=== PATIENT | female | born 2000 | race Caucasian/White ===

== ENCOUNTER → 2023-03-28 | Outpatient (CLI) | payer BC, SELFPAY ==
[2023-03-30 22:07] LABS: Chlamydia By Nucleic Acid AMP Negative (Negative); Gonococcus By Nucleic Acid AMP Negative (Negative)
[2023-04-01 16:09] LABS: HPV APTIMA, High Risk Negative (Negative)
== END | disposition home or self-care (01) ==
LOC: LABSPEC 13:53
PROVIDERS: Visit Provider Obstetrics & Gynecology
DX: Z34.90 Encounter for supervision of normal pregnancy, unspecified, unspecified trimester (principal)
CPT/HCPCS: 87086; 87491; 87591; 87624; 88175; G0145

== ENCOUNTER → 2023-05-19 | Outpatient (CLI) | payer BC, SELFPAY ==
--- OUTSIDE RECORDS SUMMARY | 2023-05-19 14:00 | XMS RPT_ITS | CCD ---
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 Name Role Phone Campos Marlene Deborah Unavailable Unavailable Unavailable Unavailable CECY TIRADO Unavailable Unavailable CECY TIRADO H Unavailable Unavailable CECY PEREZ Unavailable Unavailable CECY PEREZ Unavailable Unavailable Baltazar Lam Unavailable Unavailable Baltazar Lam Unavailable Unavailable No Doctor Assigned, Nodr Unavailable Unavail able Gasca, Marlene Deborah Primary Care Provider [phone] Ana Lilia Ambrose Admitting Unavailable Ana Lilia Ambrose Attending Unavailable Harriet Sears Admitting Unavailable Harriet Sears Attending Unavailable Gasca, Marlene Admitting Unavailable Gasca, Marlene Attending Unavailable Gasca, Marlene Admitting Unavailable Gasca, Marlene Attending Unavailable Gasca, Marlene Admitting Unavailable Gasca, Marlene Attending Unavailable Gasca, Marlene Deborah Primary Care Provider Cecy Tirado Primary Care Provider Unavailable Primary Care Provider Unavailabl e Gasca, Marlene Deborah Primary Care Provider RICKEY PARSON Admitting Unavail able GASCA, MARLENE DEBORAH Primary Care Unavailable KASIA GOMEZ Referring Unavailable KASIA GOMEZ Admitting Unavailable GASCA, MARLENE DEBORAH Primary Care Unavailable GASCA, MARLENE DEBORAH Primary Care Unavailable ROGELIO BAKER Attending Unavailable Gasca, Marlene Primary Care Provider [phone] GERTRUDE BURNETTE II Referring Unavailabl e GASCA, MARLENE Primary Care Unavailable ROSALINA BURNETTE Attending Unavailabl e GASCA, MARLENE BLACKWELLA Attending Unavailable GASCA, MARLENE DEBORAH Primary Care Unavailable GASCA, MARLENE DEBORAH Primary Care Unavailable GASCA, MARLENE DEBORAH Attending Unavailable GASCA, MARLENE DEBORAH Attending Unavailable GASCA, MARLENE DEBORAH Primary Care Unavailable MARY RICHARDSON Attending Unavailabl e GASCA, MARLENE DEBORAH Primary Care Unavailable GASCA, MARLENE DEBORAH Primary Care Unavailable GASCA, MARLENE DEBORAH Primary Care Unavailable GASCA, MARLENE DEBORAH Primary Care Unavailable Allergies Allergy Classification Reported Allergen(s) Allergy Type Date of Onset Reaction(s) Facility (20 sources) amoxicillin / clavulanate; Translations: [AMOXICILLIN-POT CLAVULANATE] Drug Allergy 4 GI Intolerance, Nausea and Vomiting, Vomiting [facility] (1 source) Amoxicillin / Clavulanate; Translations: [Augmentin] Drug Allergy [facility] Repository (20 sources) Codeine; Translations: [CODEINE] Drug Allergy 5 GI Intolerance, Nausea and Vomiting, Vomiting [facility] (15 sources) Sulfonamides (Antibiotic); Translations: [SULFA (SULFONAMIDE ANTIBIOTICS)] Propensity to adverse reactions to drug 6 GI Intolerance, Other (See Comments) [facility] (4 sources) casein (cow milk) allergenic extract Drug Allergy Abdominal Discomfort [facility] (6 sources) chocolate allergenic extract; Translations: [CHOCOLATE] Drug Allergy 4 Abdominal Discomfort, [facility] (4 sources) Sulfonamides (Antibiotic) Propensity to adverse reactions to drug Headache [facility] (2 sources) cow milk allergenic extract; Translations: [MILK] Drug Allergy 4 GI Upset [facility] Medications Current Medications Medication Drug Class(es) Dates Sig (Normalized) Sig (Original) acetaminophen 325 mg oral tablet (2 sources) Start: 10-10-2019 take 650 mg by mouth every six hours as needed for pain, then take 4000 mg by mouth every twenty-four hours as needed for pain 650 mg, Oral, EVERY 6 HOURS PRN, Pain Mild (1-3), Starting [facility] 10/10/19 at 1724 Maximum dose of acetaminophen is 4000 mg from all sources in 24 hours. Completed/Discontinued Medications Medication Drug Class(es) Dates Sig (Normalized) Sig (Original) amoxicillin 875 mg / clavulanate 125 mg oral tablet (1 source) Penicillin-class Antibacterial Start: 09-07-2017 End: 09-07-2017 take 1 tablet by mouth twice daily amoxicillin-clavul anate (AUGMENTIN) 875-125 mg per tablet Indications: Acute non-recurrent frontal sinusitis Take 1 (one) tablet by mouth 2 (two) times a day. 20 tablet 0 09/07/2017 09/07/2017 Discontinued Calcium Carbonate / vitamin D3 (1 source) CALCIUM CARBONATE/VITAMIN D3 (VITAMIN D-3 ORAL) Take by mouth. 0 Active Problems Active Problems Problem Classification Problem Date Documented Date Episodic/Chronic Blindness and vision defects (2 sources) Bilateral myopia of eyes; Translations: [Myopia, bilateral] Onset: 5 Episodic Coagulation and hemorrhagic disorders (10 sources) Thrombocytopenia, unspecified; Translations: [Idiopathic thrombocytopenic purpura] Onset: 7 10-25-2016 Chronic Deficiency and other anemia (4 sources) Anemia; Translations: [Anemia, unspecified] 10-25-2016 Episodic E Codes: Adverse effects of medical drugs (2 sources) Adverse effect of unspecified drugs, medicaments and biological substances, initial encounter; Translations: [Adverse effect of unspecified drugs, medicaments and biological substances, initial encounter] Onset: 3 Episodic External cause codes: Natural/environment (1 source) Exposure to other specified factors, initial encounter; Translations: [Exposure to needle, initial encounter] Genitourinary symptoms and ill-defined conditions (1 source) Foul smelling urine; Translations: [Bad odor of urine] Intestinal infection (1 source) Diarrhea of presumed infectious origin Episodic Menstrual disorders (2 sources) Irregular menstruation, unspecified; Translations: [Irregular menstruation, unspecified] Onset: 3 Chronic Nausea and vomiting (1 source) Nausea and vomiting Episodic Noninfectious gastroenteritis (1 source) Gastroenteritis; Translations: [Gastroenteritis] Episodic Other complications of ; puerperium affecting management of mother (1 source) delivery - delivered; Translations: [ delivery delivered] Episodic Other complications of ; puerperium affecting management of mother (2 sources) Indication for care AND/OR intervention in labor AND/OR delivery; Translations: [Labor and delivery indication for care or intervention] Onset: 0 10-10-2019 Episodic Other complications of ; puerperium affecting management of mother (5 sources) Suspected abnormality affecting management of mother; Translations: [Suspected abnormality of fetus affecting management of mother in delgado ] 09-11-2019 Other complications of (2 sources) condition affecting obstetrical care of mother; Translations: [ abnormality affecting management of mother] 09-23-2019 Episodic Other eye disorders (1 source) Bilateral neovascularization of corneas; 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, 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 Other eye disorders (1 source) Vascularization of cornea; 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, unspecified eye] Onset: 6 12-04-2015 Chronic Other hematologic conditions (4 sources) Personal history of diseases of the blood and blood-forming organs and certain disorders involving the immune mechanism; Translations: [Personal history of diseases of the blood and blood-forming organs and certain disorders involving the immune mechanism] Onset: 2 Episodic Other injuries and conditions due to external causes (1 source) Needle stick injury with contaminated needle; Translations: [Accidental needlestick injury with exposure to body fluid] Episodic Other upper respiratory disease (1 source) Seasonal allergic rhinitis Chronic Other upper respiratory infections (1 source) Sore throat symptom; Translations: [Sore throat] Episodic Otitis media and related conditions (1 source) Otitis media; Translations: [Otitis media, unspecified laterality, unspecified otitis media type] Episodic Polyhydramnios and other problems of amniotic cavity (3 sources) Oligohydramnios; Translations: [Oligohydramnios antepartum, third trimester, fetus 1] Onset: 0 10-07-2019 Episodic Spondylosis; intervertebral disc disorders; other back problems (4 sources) Low back pain; Translations: [Low back pain] 10-25-2016 Episodic Unclassified (1 source) Patient encounter status; Translations: [Well adult exam] Urinary tract infections (2 sources) Urinary tract infectious disease; Translations: [Urinary tract infection with hematuria, site unspecified] Episodic Past or Other Problems Problem Classification Problem Date Documented Date Episodic/Chronic Genitourinary symptoms and ill-defined conditions (8 sources) Abnormal urine odor; Translations: [Dysuria] Onset: 02-28-2020 02-28-2020 Episodic Medical examination/evaluatio n (2 sources) Encounter for general adult medical examination without abnormal findings; Translations: [Encounter for general adult medical examination without abnormal findings] Onset: 11-02-2016 Episodic Other eye disorders (1 source) Disorder of cornea associated with contact lens; Translations: [Corneal disorder due to contact lens, unspecified eye] Onset: 04-15-2015 04-15-2015 Episodic Other screening for suspected conditions (not mental disorders or infectious disease) (12 sources) Encounter for screening for lipoid disorders; Translations: [Encounter for screening for cardiovascular disorders] Onset: 10-19-2022 Episodic NEGATED: Highlighted row has been ruled out!Unclassified (3 sources) No known active problems Results Test Name Value Interpretation Reference Range Facil ity Vital Signs Date Time Vital Sign Value Performing Clinician Facility 02-27-2020 15:46-0400 Body Temperature 97.7 [degF] [facility] 02-27-2020 15:46-0400 BP Diastolic 64 mm[Hg] [facility] 02-27-2020 15:46-0400 BP Systolic 105 mm[Hg] [facility] 02-27-2020 15:46-0400 Pulse (Heart Rate) 58 /min [facility] 02-27-2020 15:46-0400 Pulse Oximetry 98 % [facility] 02-27-2020 15:46-0400 Respiratory Rate 18 /min [facility] 10-12-2019 08:59-0400 Body Temperature 97 [degF] [facility] [place] [place] 10-12-2019 08:59-0400 BP Diastolic 77 mm[Hg] [place], [place] 10-12-2019 08:59-0400 BP Systolic 106 mm[Hg] [facility] [place] [place] 10-12-2019 08:59-0400 Pulse (Heart Rate) 78 /min [facility] [place] 10-12-2019 08:59-0400 Pulse Oximetry 97 % [place], [place] 10-12-2019 08:59-0400 Respiratory Rate 18 /min [facility] [place] 10-10-2019 10:03-0400 BMI (Body Mass Index) 27.78 kg/m2 [facility] [place] 10-10-2019 10:03-0400 Body weight 66.[address] [facility] , [place] 10-10-2019 10:03-0400 Height [facility].9 [facility] Mag[facility] , [place] 10-08-2019 07:47-0400 Body Temperature 98.01 [degF] Leonila Magallanes [facility] [place] 10-08-2019 07:47-0400 BP Diastolic 62 mm[Hg] Leon[facility] [place] , [place] 10-08-2019 07:47-0400 BP Systolic 102 mm[Hg] Leonila [facility] [place] 10-08-2019 07:47-0400 Pulse (Heart Rate) 80 /min Leonila Ferguson [facility] 10-08-2019 07:47-0400 Pulse Oximetry 96 % Leonila Ferguson [facility] [place] 10-08-2019 07:47-0400 Respiratory Rate 18 /min Leonila Magallanes [facility], [place] 10-07-2019 17:59-0400 BMI (Body Mass Index) 27.78 kg/m2 Leonila Magallanes [facility], [place] 10-07-2019 17:59-0400 Body weight 66.68 kg Leonila aMgallanes [facility] , [place] 10-07-2019 17:59-0400 Height 154.9 cm Leonila Magallanes [facility] [place] 09-23-2019 10:27-0400 BMI (Body Mass Index) 26.45 kg/m2 Leonila Magallanes [facility], [place] 09-23-2019 10:27-0400 Body Temperature 97.9 [degF] Leonila Magallanes [facility], [place] 09-23-2019 10:27-0400 Body weight 63.5 kg Leonila Magallanes [facility] , [place] 09-23-2019 10:27-0400 BP Diastolic 88 mm[Hg] Leonila Ferguson [facility] [place] 09-23-2019 10:27-0400 BP Systolic 129 mm[Hg] Leonila Magallanes [facility] , [place] 09-23-2019 10:27-0400 Height 154.9 cm Leonila Magallanes [facility] , [place] 09-23-2019 10:27-0400 Pulse (Heart Rate) 92 /min Leonila Magallanes [facility] 09-23-2019 10:27-0400 Respiratory Rate 20 /min Leonila Magallanes [facility], [place] 09-11-2019 14:19-0400 BMI (Body Mass Index) 26.45 kg/m2 Leonila Magallanes [facility], [place] 09-11-2019 14:19-0400 Body weight 63.5 kg Leonila Magallanes [facility] [place] 09-11-2019 14:19-0400 Height 154.9 cm Leonila Magallanes [facility] [place] 12-07-2018 11:08-0400 BMI (Body Mass Index) 22.48 kg/m2 [facility] 12-07-2018 11:08-0400 Body Temperature 98.1 [degF] [facility] 12-07-2018 11:08-0400 Body weight 53.98 kg [facility] 12-07-2018 11:08-0400 BP Diastolic 58 mm[Hg] [facility] 12-07-2018 11:08-0400 BP Systolic 102 mm[Hg] [facility] 12-07-2018 11:08-0400 Height 154.9 cm [facility] 12-07-2018 11:08-0400 Pulse (Heart Rate) 77 /min [facility] 12-07-2018 11:08-0400 Pulse Oximetry 99 % [facility] 12-07-2018 11:08-0400 Respiratory Rate 12 /min [facility] 12-05-2018 04:38-0400 BMI (Body Mass Index) 22.67 kg/m2 Karri Maza [facility] 12-05-2018 04:38-0400 Body weight 54.[address] [facility] 12-05-2018 04:38-0400 Height 154.[address] [facility] 12-05-2018 04:32-0400 Body Temperature 97.9 [degF] Karri Maza [facility] 12-05-2018 04:32-0400 BP Diastolic 83 mm[Hg] Karri Maza [facility] 12-05-2018 04:32-0400 BP Systolic 112 mm[Hg] Karri Maza [facility] 12-05-2018 04:32-0400 Pulse (Heart Rate) 58 /min Karri Maza [facility] 12-05-2018 04:32-0400 Pulse Oximetry 100 % Karri Maza [facility] 12-05-2018 04:32-0400 Respiratory Rate 16 /min Karri Maza [facility] 11-29-2018 10:49-0400 Body Temperature 98.1 [degF] [place] [facility] 11-19-2018 08:25-0400 BMI (Body Mass Index) 22.09 kg/m2 Marlene Gasca [facility] 11-19-2018 08:25-0400 Body Temperature 98.6 [degF] Marlene Gasca [facility] 11-19-2018 08:25-0400 Body weight 54.[address] [facility] 11-19-2018 08:25-0400 BP Diastolic 70 mm[Hg] Marlenekimberli Gasca [facility] 11-19-2018 08:25-0400 BP Systolic 104 mm[Hg] Marlene Gasca [facility] 11-19-2018 08:25-0400 Height 157.[address] [facility] 11-19-2018 08:25-0400 Pulse (Heart Rate) 50 /min Marlene Gasca [facility] 11-19-2018 08:25-0400 Pulse Oximetry 98 % Marlene Gasca [facility] 11-19-2018 08:25-0400 Respiratory Rate 16 /min Marlene Gasca [facility] 08-14-2018 15:45-0400 BMI (Body Mass Index) 22.06 kg/m2 Aleah Mejia [facility] 08-14-2018 15:45-0400 Body Temperature 98.8 [degF] Aleah Mejia [facility] 08-14-2018 15:45-0400 BP Diastolic 66 mm[Hg] Aleah Mejia [facility] 08-14-2018 15:45-0400 BP Systolic 102 mm[Hg] Aleah Mejia [facility] 08-14-2018 15:45-0400 Pulse (Heart Rate) 66 /min Aleah Mejia [facility] 08-14-2018 15:45-0400 Pulse Oximetry 99 % Aleah Mejia [facility] 08-14-2018 15:45-0400 Respiratory Rate 15 /min Aleah Mejia [facility] 08-14-2018 15:45-0400 Weight 54.[address] [facility] 06-22-2018 09:52-0500 BMI (Body Mass Index) 21.95 kg/m2 Rogelio Baker [facility] 06-22-2018 09:52-0500 Body Temperature 97.81 [degF] Rogelio Baker [facility] 06-22-2018 09:52-0500 BP Diastolic 81 mm[Hg] Rogelio Baker [facility] 06-22-2018 09:52-0500 BP Systolic 121 mm[Hg] Rogelio Baker [facility] 06-22-2018 09:52-0500 Height 157.[address] [facility] 06-22-2018 09:52-0500 Pulse (Heart Rate) 63 /min Rogelio Baker [facility] 06-22-2018 09:52-0500 Pulse Oximetry 98 % Rogelio Baker [facility] 06-22-2018 09:52-0500 Respiratory Rate 16 /min Rogelio Baker [facility] 06-22-2018 09:52-0500 Weight 54.[address] [facility] 11-16-2017 09:01-0400 Body Temperature 98.6 [degF] Marlene Gasca [facility] 11-16-2017 09:01-0400 BP Diastolic 62 mm[Hg] Marlenekimberli Gasca [facility] 11-16-2017 09:01-0400 BP Systolic 108 mm[Hg] Marlenekimberli Gasca [facility] 11-16-2017 09:01-0400 Pulse (Heart Rate) 84 /min Marlene [facility] 11-16-2017 09:01-0400 Respiratory Rate 16 /min Marlenekimberli Gasca [facility] 11-16-2017 09:01-0400 Weight 52.[address] [facility] 10-11-2017 15:05-0400 Body Temperature 98.01 [degF] Marlenekimberli Gasca [facility] 10-11-2017 15:05-0400 BP Diastolic 68 mm[Hg] Marlenekimberli Gasca [facility] 10-11-2017 15:05-0400 BP Systolic 104 mm[Hg] Marlenekimberli Gasca [facility] 10-11-2017 15:05-0400 Pulse (Heart Rate) 64 /min Marlene [facility] 10-11-2017 15:05-0400 Pulse Oximetry 98 % Marlene Gasca [facility] 10-11-2017 15:05-0400 Respiratory Rate 15 /min Marlene Gasca [facility] 10-11-2017 15:05-0400 Weight 54.[address] [facility] 09-07-2017 11:24-0400 Body Temperature 98.1 [degF] Marlene Gasca [facility] 09-07-2017 11:24-0400 BP Diastolic 60 mm[Hg] Marlene Gasca [facility] 09-07-2017 11:24-0400 BP Systolic 90 mm[Hg] Marlene Gasca [facility] 09-07-2017 11:24-0400 Pulse (Heart Rate) 54 /min Marlene Gasca [facility] 09-07-2017 11:24-0400 Pulse Oximetry 99 % Marlene Gasca [facility] 09-07-2017 11:24-0400 Respiratory Rate 16 /min Marlene Gasca [facility] 09-07-2017 11:24-0400 Weight 54.[address] [facility] Encounters Encounter Date Encounter Type Care Provider Facility Start: 03-08-2023 End: 03-08-2023 Emergency department patient visit [facility] Start: 03-06-2023 End: 03-10-2023 ambulatory MARLENE [facility] Start: 12-26-2022 End: 12-30-2022 ambulatory MARLENE [facility] Start: 10-19-2022 End: 2022 ambulatory MARLENE LEA [facility] Start: 10-19-2022 End: 2022 Encounter for general adult medical examination without abnormal findings MARLENE CABRERA [facility] Start: 05-12-[address] [facility] Start: 05-11-2022 End: 05-11-2022 ambulatory GERTRUDE BURNETTE II Facility:[facility] Start: 05-11-2022 End: 05-11-2022 Office outpatient visit 15 minutes Rosalina Burnette OD Work Phone: Optometry Procedures Date Procedure Procedure Detail Performing Clinician Start: 04-28-2020 Microscopic observat ion [Identifier] in Cervix by Cyto stain Marlene Gasca Start: 02-27-2020 Urnls dip stick/tabl et rgnt auto w/o microscopy Marlene Gasca Work Phone: Start: 10-11-2019 Blood count platelet automated Yobaniun Candace Guadalupe Work Phone: Start: 10-11-2019 Blood count hemoglobin Jeff Laws Work Phone: Start: 10-10-2019 Antibody id rbc antibodies ea panel ea serum tq Jeff Laws Work Phone: Start: 10-10-2019 RHO(D) IMMUNE GLOBUL IN, Jeff Laws Work Phone: Start: 10-10-2019 Antibody id rbc antibodies ea panel ea serum tq Isamar Arenas Work Phone: Start: 10-10-2019 Blood count complete automated Isamar Arenas Work Phone: Start: 10-10-2019 Blood typing serolog ic abo Isamar Arenas Work Phone: Start: 10-08-2019 US LIMITED As clinton Marcano [employer] Work Phone: Start: 10-07-2019 Antibody id rbc antibodies ea panel ea serum tq Rose Mary Marcano [employer] Work Phone: Start: 10-07-2019 Blood count complete automated Rose Mary L [employer] Work Phone: Start: 10-07-2019 Blood typing serolog ic abo Rose Mary L [employer] Work Phone: Start: 08-20-2019 RHOGAM, EXTERNAL RESULT Historical Provider Start: 07-23-2019 Blood count hemoglobin Plan of Treatment Date Care Activity Detail Author Start: 09-25-2029 Tetanus vaccination Tetanus: Every 10yrs [facility] Start: 12-05-2028 Tetanus vaccination TETANUS EVERY [address] [facility] Start: 04-28-2023 Screening for malignant neoplasm of cervix Pap Smear [facility] Start: 05-01-2022 DEPRESSION ASSESSMENT DEPRESSION ASSESSMENT [facility] Start: 12-30-2021 Influenza vaccination INFLUENZA (#1) [facility] Start: 06-06-2021 COVID-19 VACCINE (3 - Moderna risk series) COVID-19 VACCINE (3 - Moderna risk series) [facility] Start: 07-09-2020 End: 07-09-2020 Office Visit 07/09/2020 Office Visit [facility] Start: 12-31-2019 Influenza vaccination Flu vaccine (Season Ended) [facility]stream[facility] FRED BEDOLLA Start: 12-15-2019 Tetanus vaccination TETANUS EVERY [address] [facility] Start: 11-20-2019 History and physical examination, annual for health maintenance Wellness Visit [facility] Start: 10-24-2019 PAP TESTING PAP TESTING [facility] Start: 08-15-2019 Depression screening using PHQ-9 (Patient Health Questionnaire 9) score DEPRESSION SCREENING (PHQ9) [facility] Start: 06-03-2019 End: 06-03-2019 Office Visit 06/03/2019 Office Visit [facility] Start: 04-10-2019 End: 04-10-2019 Office Visit 04/10/2019 Office Visit [facility] Start: 12-30-2018 Influenza vaccination INFLUENZA VACCINE (#1) [facility] Start: 12-30-2018 Influenza vaccination given SEQUENTIAL INFLUENZA VACCINE (#1) [facility] Start: 12-30-[address] [facility] Start: 12-30-2017 Influenza vaccination given SEQUENTIAL INFLUENZA VACCINE (#1) [facility] Start: 2017 SHINGRIX VACCINE (1 of 2) SHINGRIX VACCINE (1 of 2) [facility] Start: 2017 Third diphtheria, tetanus and acellular pertussis (DTaP) vaccination TDAP (ADULT) [facility] Start: 2017 Urine microalbumin profile DTAP,TDAP,TD (1 - Tdap) [facility] Start: 2016 CHLAMYDIA SCREENING (18-24) CHLAMYDIA SCREENING (18-24) [facility] Start: 2016 GC (GONORRHEA) SCREENING (18-24) GC (GONORRHEA) SCREENING (18-24) [facility] Start: 2016 Hepatitis C antibody, confirmatory test Hepatitis C Screening [facility] Start: 2016 HEPATITIS C SCREENING HEPATITIS C SCREENING [facility] Start: 2016 HIV SCREENING HIV SCREENING [facility] Start: 2016 Tetanus vaccination TETANUS [facility] Start: 2014 Screening for Chlamydia trachomatis CHLAMYDIA SCREEN [facility] Start: 2013 HIV screening HIV Screening [facility] Start: 2013 Vaccination for human papillomavirus [facility] Start: 2012 PEDS TO ADULT TRANSITION ANNUAL ASSESSMENT PEDS TO ADULT TRANSITION ANNUAL ASSESSMENT [facility] Start: 10-24-2011 HIV screening HIV SCREENING DISCUSSION [facility] [facility] Start: 2010 Adolescent depression screening assessment Depression Screening (PHQ9) [facility] Start: 2010 PEDS TO ADULT TRANSITION INITIAL DISCUSSION PEDS TO ADULT TRANSITION INITIAL DISCUSSION [facility] Start: 2009 HPV VACCINE (1 - 2-dose series) HPV VACCINE (1 - 2-dose series) [facility] Start: 2009 Vaccination for human papillomavirus [facility] Start: 2004 PNEUMOCOCCAL (1 - PCV) PNEUMOCOCCAL (1 - PCV) [facility] Start: 2001 History and physical examination, annual for health maintenance Wellness Visit [facility] Start: 1998 GONORRHEA SCREEN GONORRHEA SCREEN [facility] Start: 1998 HEPATITIS B (1 of 3 - 3-dose series) HEPATITIS B (1 of 3 - 3-dose series) [facility] Start: 1998 Screening for Chlamydia trachomatis Chlamydia Screening [facility] Start: 1998 Screening for malignant neoplasm of cervix Pap Smear [facility] Start: 1998 Tetanus vaccination TETANUS EVERY [address] [facility] End: 09-07-2018 Bacteria aerobode culture Urine Aerobic Culture Routine Urinary tract infection without hematuria, site unspecified 1 Occurrences starting 09/07/2017 until 09/07/2018 [facility] End: 11-30-2019 Bacteria identified Aer cx Nom (Unsp spec) Urine Aerobic Culture Microbiology Routine Urinary tract infection with hematuria, site unspecified 1 Occurrences starting 11/29/2018 until 11/30/2019 [facility] Immunizations Immunization Date Immunization Notes Care Provider Fa cility 01-03-2020 influenza, injectabl e, quadrivalent, preservative free Marlene Gasca [facility] 10-10-2019 RHO(D) immune globul in - IM [facility] [place] [place] 10-10-2019 diphtheria, tetanus toxoids and acellular pertussis vaccine, unspecified formulation [facility] [place] 10-10-2019 measles, mumps and rubella virus vaccine [facility] 09-26-2019 tetanus toxoid, reduced diphtheria toxoid, and acellular pertussis vaccine, adsorbed [facility] 08-20-2019 RHO(D) immune globul in - IM [facility] 01-28-2019 influenza, injectabl e, quadrivalent, preservative free [facility] 12-05-2018 tetanus toxoid, reduced diphtheria toxoid, and acellular pertussis vaccine, adsorbed Karri [facility] 12-05-2018 diphtheria, tetanus toxoids and acellular pertussis vaccine, unspecified formulation Karriliya Maza [facility] 05-27-2015 meningococcal polysaccharide (groups A, C, Y and W-135) diphtheria toxoid conjugate vaccine (MCV4P) [facility] 03-09-2015 influenza virus vaccine, live, attenuated, for intranasal use [facility] 03-09-2015 influenza virus vaccine, unspecified formulation Provider [facility] 05-11-2012 varicella virus vaccine [facility] 04-29-2010 meningococcal polysaccharide (groups A, C, Y and W-135) diphtheria toxoid conjugate vaccine (MCV4P) [facility] 04-19-2010 meningococcal polysaccharide (groups A, C, Y and W-135) diphtheria toxoid conjugate vaccine (MCV4P) [facility] 12-14-2009 tetanus toxoid, reduced diphtheria toxoid, and acellular pertussis vaccine, adsorbed [facility] 10-18-2003 diphtheria, tetanus toxoids and acellular pertussis vaccine, 5 pertussis antigens [facility] 10-18-2003 measles, mumps and rubella virus vaccine [facility] 10-18-2003 poliovirus vaccine, inactivated [facility] 04-29-2000 diphtheria, tetanus toxoids and acellular pertussis vaccine, 5 pertussis antigens [facility] 04-29-2000 poliovirus vaccine, inactivated [facility] 03-04-2000 pneumococcal conjuga te vaccine, 7 valent [facility] 03-04-2000 pneumococcal Conjugate, unspecified formulation [facility] 01-29-2000 haemophilus influenz ae type b conjugate and Hepatitis B vaccine [facility] 01-29-2000 measles, mumps and rubella virus vaccine [facility] 01-01-2000 pneumococcal conjuga te vaccine, 7 valent [facility] 01-01-2000 pneumococcal Conjugate, unspecified formulation [facility] 10-30-1999 varicella virus vaccine [facility] 04-28-1999 diphtheria, tetanus toxoids and acellular pertussis vaccine, 5 pertussis antigens [facility] 02-25-1999 diphtheria, tetanus toxoids and acellular pertussis vaccine, 5 pertussis antigens [facility] 02-25-1999 haemophilus influenz ae type b conjugate and Hepatitis B vaccine [facility] 02-25-1999 poliovirus vaccine, inactivated [facility] 1998 diphtheria, tetanus toxoids and acellular pertussis vaccine, 5 pertussis antigens [facility] 1998 haemophilus influenz ae type b conjugate and Hepatitis B vaccine [facility] 1998 poliovirus vaccine, inactivated [facility] NEGATED: Highlighted row has not occurred!10-12-2019 measles, mumps and rubella virus vaccine [place] NEGATED: Highlighted row has not occurred!10-12-2019 tetanus toxoid, reduced diphtheria toxoid, and acellular pertussis vaccine, adsorbed [place] Payers Date Payer Category Payer Unknown [id number] 12-05-2018 Worker's Compensation [employer] [id number] 12/05/2018-Present [id number] 12-05-2018 Worker's Compensation [employer] [id number] 12/05/2018-Present [id number] 08-22-2018 [facility] [id number] 08/22/2018-Present [phone] [address] [place] [address] Medicaid [id number] 07-30-2018 Medicaid [id number] 07-30-2018 Medicaid [id number] 07-30-2018 Medicaid [id number] 06-01-2018 Unknown [id number] 03-17-2018 Unknown 05-01-2017 Unknown [id number] 10-29-2016 Unknown [id number] 1998 Unknown [id number] [id number]. 717 1998 Unknown [id number] 2.16840.1.689576.3.579.2. 356 1998 Unknown [id number] 2.16840.1.580606.3.579.2. 900 1998 Unknown [id number] 2.16840.1.630428.3.579.2. 900 1998 Unknown [id number] 2.16840.1.965936.3.579.2. 903 1998 Unknown [id number] 2.16.840.1.561120.3.579.2. 903 1998 Unknown [id number] 2.16840.1.791555.3.579.2. 903 1998 Unknown [id number] 2.16840.1.762865.3.579.2. 903 1998 Unknown [id number] 2.16.840.1.133235.3.579.2. 903 1998 Unknown [id number] 2.16.840.1.673304.3.579.2. 903 1998 Unknown [id number] 2.16.840.1.855603.3.579.2. 903 1998 Unknown [id number] 2.16.840.1.067671.3.579.2. 903 Medicaid [id number] [id number]. [id number] Unknown [id number] Unknown [id number] Unknown [id number] Worker's Compensation [employer] PEND[employer] WORK[employer] COMPENSATION [id number] Effective for all dates [id number] Social History Date Type Detail Facility Start: 11-15-2014 End: 09-07-2017 Tobacco smoking status NHIS Never smoker [facility] Start: 1998 Sex Assigned At Not on file [facility] [employer] Work Phone: Start: 06-10-2017 Tobacco smoking stat us [facility] Unknown if ever smoked [facility] Work Phone: Start: 12-05-2018 End: 05-11-2022 Alcohol intake Current non-drinker of alcohol (finding) [facility] Start: 09-11-2019 End: 09-23-2019 Alcohol intake Lifetime non-drinker (finding) [place], [place] Start: 09-11-2019 History SDOH Alcohol Frequency 1 [place] Start: 02-22-2019 [place], [place] Exposure to SARS-CoV -2 (event) Unable to assess [place] Start: 11-15-2014 End: 02-28-2020 Tobacco use and exposure Never used [facility] Exposure to SARS-CoV -2 (event) Not sure [facility] Progress note 05-11-2022 Note Date & Type Note Facility 05-11-2022 Note HNO ID: [id number] Author: Rosalina Burnette OD Service: ? Author Type: CARD GRADER Type: Progress Notes Filed: 05/11/2022 5:34 PM Note Text: ASSESSMENT/PLAN: 1. 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 2. Myopia of both eyes - ICD9: 367.1, ICD10: H52.13 Continue to wear her glasses as desired. Continue to wear her contact lenses on a daily basis and replacing them with each use. Recommended yearly exams. Rosalina Burnette, OD I have confirmed and edited as necessary the relevant ophthalmic history, ROS, and the neuro exam findings as obtained by others. I have seen and examined this patient. [facility] 05-11-2022 Patient Instructions Note Date & Type Note Facility 05-11-2022 Instructions Rosalina Burnette, OD - 05/11/2022 5:31 PM EST ASSESSMENT/PLAN: 1. 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 2. Myopia of both eyes - ICD9: 367.1, ICD10: H52.13 Continue to wear her glasses as desired. Continue to wear her contact lenses on a daily basis and replacing them with each use. Recommended yearly exams. documented in this encounter [facility] History of Present illness Narrative 05-11-2022 Rosalina Burnette, OD - 05/11/2022 5:29 PM EST Note Date & Type Note Facility 05-11-2022 History of Presen t illness Narrative ASSESSMENT/PLAN: 1. 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 2. Myopia of both eyes - ICD9: 367.1, ICD10: H52.13 Continue to wear her glasses as desired. Continue to wear her contact lenses on a daily basis and replacing them with each use. Recommended yearly exams. Rosalina Burnette, OD I have confirmed and edited as necessary the relevant ophthalmic history, ROS, and the neuro exam findings as obtained by others. I have seen and examined this patient. documented in this encounter [facility] History of Past illness Narrative 04-15-2015 Note Date & Type Note Facility documented as of this encounter (statuses as of 05/12/2022) [facility] Evaluation note Note Date & Type Note Facility documented in this encounter [facility] Instructions * Patient Instructions - Marlene Gasca CNP - 09/07/2017 11:47 AM EDT I have ordered levaquin for you to take for the next 10 days. This antibiotic should clear up both your sinus infection and your urinary tract infeciton. We will contact you with the results of your urine culture when they return to the office. in this encounter* Patient Instructions - Marlene Gasca CNP - 10/11/2017 3:23 PM EDT I have ordered Zyrtec for you to start taking, take one tablet daily. If you don't notice improvement in your symptoms over the next several days please call the office and let me know. in this encounter* Patient Instructions - Marlene Gasca CNP - 11/16/2017 9:31 AM EDT We will contact you with the results of your blood work and your stool sample when they return to the office. I have taken you out of work until next week. Please use this time to rest. in this encounter* Patient Instructions* Rogelio Baker CNP - 06/22/2018 10:23 AM EST Take medication for nausea and about 15 minutes later start taking fluids. Take fluids as much as you can--clear. Gatorade, coolaid, clear pop (7-up, rosario kim). IF can hold nothing down, go to ED. and dehydration do not go together. Gastroenteritis: Care Instructions Your Care Instructions Gastroenteritis is an illness that may cause nausea, vomiting, and diarrhea. It is sometimes called stomach flu. It can be caused by bacteria or a virus. You will probably begin to feel better in 1 to 2 days. In the meantime, get plenty of rest and makesure you do not become dehydrated. Dehydration occurs when your body loses too much fluid. Follow-up care is a garcia part of your treatment and safety. Be sure to make and go to all appointments, and call your doctor if you are having problems. It's also a good idea to know your test resultsand keep a list of the medicines you take. How can you care for yourself at home? If your doctor prescribed antibiotics, take them as directed. Do not stop taking them just because you feel better. You need to take the full course of antibiotics. Drink plenty of fluids to prevent dehydration, enough so that your urine is light yellow or clear like water. Choose water and other caffeine-free clear liquids until you feel better. If you have kidney, heart, or liver disease and have to limit fluids, talk with your doctor before you increase your fluid intake. Drink fluids slowly, in frequent, small amounts, because drinking too much too fast can cause vomiting. Begin eating mild foods, such as dry toast, yogurt, applesauce, bananas, and rice. Avoid spicy, hot, or high-fat foods, and do not drink alcohol or caffeine for a day or two. Do not drink milk or eatice cream until you are feeling better. How to prevent gastroenteritis Keep hot foods hot and cold foods cold. Do not eat meats, dressings, salads, or other foods that have been kept at room temperature for more than 2 hours. Use a thermometer to check your refrigerator. It should be between 34 F and 40 F. Defrost meats in the refrigerator or microwave, not on the kitchen counter. Keep your hands and your kitchen clean. Wash your hands, cutting boards, and countertops with hot soapy water frequently. Cook meat until it is well done. Do not eat raw eggs or uncooked sauces made with raw eggs. Do not take chances. If food looks or tastes spoiled, throw it out. When should you call for help? Call 911 anytime you think you may need emergency care. For example, call if: You vomit blood or what looks like coffee grounds. You passed out (lost consciousness). You pass maroon or very bloody stools. Call your doctor now or seek immediate medical care if: You have severe belly pain. You have signs of needing more fluids. You have sunken eyes, a dry mouth, and pass only a little dark urine. You feel like you are going to faint. You have increased belly pain that does not go away in 1 to 2 days. You have new or increased nausea, or you are vomiting. You have a new or higher fever. Your stools are black and tarlike or have streaks of blood. Watch closely for changes in your health, and be sure to contact your doctor if: You are dizzy or lightheaded. You urinate less than usual, or your urine is dark yellow or brown. You do not feel better with each day that goes by. Where can you learn more? Log into your personal health record on https://Nano[employer] Therapeuticst.Simphatic and enter N142 in the Education box to learn more about Gastroenteritis: Care Instructions. Current as of: November 27, 2017 Content Version: 11.9 3939-2556 Brayola. Care instructions adapted under license by your healthcare professional. If you have questions about a medical condition or this instruction, always ask your healthcare professional. [employer] disclaims any warranty or liability for your use of this information. Sore Throat: Care Instructions Your Care Instructions Infection by bacteria or a virus causes most sore throats. Cigarette smoke, dry air, air pollution,allergies, and yelling can also cause a sore throat. Sore throats can be painful and annoying. Fortunately, most sore throats go away on their own. If you have a bacterial infection, your doctor may prescribe antibiotics. Follow-up care is a garcia part of your treatment and safety. Be sure to make and go to all appointments, and call your doctor if you are having problems. It's also a good idea to know your test resultsand keep a list of the medicines you take. How can you care for yourself at home? If your doctor prescribed antibiotics, take them as directed. Do not stop taking them just because you feel better. You need to take the full course of antibiotics. Gargle with warm salt water once an hour to help reduce swelling and relieve discomfort. Use 1 teaspoon of salt mixed in 1 cup of warm water. Take an seww-uye-cddtouw pain medicine, such as acetaminophen (Tylenol), ibuprofen (Advil, Motrin),or naproxen (Aleve). Read and follow all instructions on the label. Be careful when taking mmaz-qnv-yuqlqbq cold or flu medicines and Tylenol at the same time. Many ofthese medicines have acetaminophen, which is Tylenol. Read the labels to make sure that you are nottaking more than the recommended dose. Too much acetaminophen (Tylenol) can be harmful. Drink plenty of fluids. Fluids may help soothe an irritated throat. Hot fluids, such as tea or soup, may help decrease throat pain. Use ynbq-hmj-xnxcxzv throat lozenges to soothe pain. Regular cough drops or hard candy may also help. These should not be given to young children because of the risk of choking. Do not smoke or allow others to smoke around you. If you need help quitting, talk to your doctor about stop-smoking programs and medicines. These can increase your chances of quitting for good. Use a vaporizer or humidifier to add moisture to your bedroom. Follow the directions for cleaning the machine. When should you call for help? Call your doctor now or seek immediate medical care if: You have new or worse trouble swallowing. Your sore throat gets much worse on one side. Watch closely for changes in your health, and be sure to contact your doctor if you do not get better as expected. Where can you learn more? Log into your personal health record on https://N[employer] The[employer]st.Simphatic and enter U420 in the Education box to learn more about Sore Throat: Care Instructions. Current as of: July 25, 2017 Content Version: 11.9 8346-2374 Brayola. Care instructions adapted under license by your healthcare professional. If you have questions about a medical condition or this instruction, always ask your healthcare professional. [employer] disclaims any warranty or liability for your use of this information. in this encounter* Patient Instructions* Aleah Mejia CNP - 08/14/2018 3:57 PM EDT Problem List Items Addressed This Visit None Visit Diagnoses Otitis media, unspecified laterality, unspecified otitis media type - Primary You can use imodium over the counter to help with GI upset as needed Relevant Medications cefdinir (OMNICEF) 300 MG capsule Ear Infection (Otitis Media): Care Instructions Your Care Instructions An ear infection may start with a cold and affect the middle ear (otitis media). It can hurt a lot.Most ear infections clear up on their own in a couple of days. Most often you will not need antibiotics. This is because many ear infections are caused by a virus. Antibiotics don't work against a virus. Regular doses of pain medicines are the best way to reduce your fever and help you feel better. Follow-up care is a garcia part of your treatment and safety. Be sure to make and go to all appointments, and call your doctor if you are having problems. It's also a good idea to know your test resultsand keep a list of the medicines you take. How can you care for yourself at home? Take pain medicines exactly as directed. ? If the doctor gave you a prescription medicine for pain, take it as prescribed. ? If you are not taking a prescription pain medicine, take an txfu-rey-ijfohfe medicine, such as acetaminophen (Tylenol), ibuprofen (Advil, Motrin), or naproxen (Aleve). Read and follow all instructions on the label. ? Do not take two or more pain medicines at the same time unless the doctor told you to. Many pain medicines have acetaminophen, which is Tylenol. Too much acetaminophen (Tylenol) can be harmful. Plan to take a full dose of pain reliever before bedtime. Getting enough sleep will help you get better. Try a warm, moist washcloth on the ear. It may help relieve pain. If your doctor prescribed antibiotics, take them as directed. Do not stop taking them just because you feel better. You need to take the full course of antibiotics. When should you call for help? Call your doctor now or seek immediate medical care if: You have new or increasing ear pain. You have new or increasing pus or blood draining from your ear. You have a fever with a stiff neck or a severe headache. Watch closely for changes in your health, and be sure to contact your doctor if: You have new or worse symptoms. You are not getting better after taking an antibiotic for 2 days. Where can you learn more? Log into your personal health record on https://MobiWorkhart.EnviroGene.21viaNet and enter X558 in the Education box to learn more about Ear Infection (Otitis Media): Care Instructions. Current as of: February 18, 2018 Content Version: 12.0 5806-3636 Brayola. Care instructions adapted under license by your healthcare professional. If you have questions about a medical condition or this instruction, always ask your healthcare professional. [employer] disclaims any warranty or liability for your use of this information. documented in this encounter* Patient Instructions* Marlene Gacsa CNP - 02/28/2020 2:02 PM EDT Urinary Tract Infection in Women: Care Instructions Your Care Instructions A urinary tract infection, or UTI, is a general term for an infection anywhere between the kidneys and the urethra (where urine comes out). Most UTIs are bladder infections. They often cause pain or burning when you urinate. UTIs are caused by bacteria and can be cured with antibiotics. Be sure to complete your treatment so that the infection goes away. Follow-up care is a garcia part of your treatment and safety. Be sure to make and go to all appointments, and call your doctor if you are having problems. It's also a good idea to know your test resultsand keep a list of the medicines you take. How can you care for yourself at home? Take your antibiotics as directed. Do not stop taking them just because you feel better. You need to take the full course of antibiotics. Drink extra water and other fluids for the next day or two. This may help wash out the bacteria that are causing the infection. (If you have kidney, heart, or liver disease and have to limit fluids, talk with your doctor before you increase your fluid intake.) Avoid drinks that are carbonated or have caffeine. They can irritate the bladder. Urinate often. Try to empty your bladder each time. To relieve pain, take a hot bath or lay a heating pad set on low over your lower belly or genital area. Never go to sleep with a heating pad in place. To prevent UTIs Drink plenty of water each day. This helps you urinate often, which clears bacteria from your system. (If you have kidney, heart, or liver disease and have to limit fluids, talk with your doctor before you increase your fluid intake.) Urinate when you need to. Urinate right after you have sex. Change sanitary pads often. Avoid douches, bubble baths, feminine hygiene sprays, and other feminine hygiene products that havedeodorants. After going to the bathroom, wipe from front to back. When should you call for help? Call your doctor now or seek immediate medical care if: Symptoms such as fever, chills, nausea, or vomiting get worse or appear for the first time. You have new pain in your back just below your rib cage. This is called flank pain. There is new blood or pus in your urine. You have any problems with your antibiotic medicine. Watch closely for changes in your health, and be sure to contact your doctor if: You are not getting better after taking an antibiotic for 2 days. Your symptoms go away but then come back. Where can you learn more? Log into your personal health record on https://MobiWorkhart.Simphatic and enter K848 in the Education box to learn more about Urinary Tract Infection in Women: Care Instructions. Current as of: October 28, 2019 Content Version: 12.6 Brayola. Care instructions adapted under license by your healthcare professional. If you have questions about a medical condition or this instruction, always ask your healthcare professional. [employer] disclaims any warranty or liability for your use of this information. documented in this encounter Assessments Diagnosis Acute non-recurrent frontal sinusitis - Primary Urinary tract infection with out hematuria, site unspecified Diagnosis Seasonal allergic rhinitis, unspecified trigger - Primary Diagnosis Diarrhea of presumed infecti ous origin - Primary Non-intractable vomiting wit h nausea, unspecified vomiting type Diagnosis Gastroenteritis- Primary Other and unspecified noninfectious gastroenteritis and colitis Sore throat Acute pharyngitis Diagnosis Otitis media, unspecified laterality, unspecified otitis media type- Primary Diagnosis Well adult exam- Primary Routine general medical examination at a health care facility Diagnosis Bad odor of urine- Primary Urinary tract infection with hematuria, site unspecified Diagnosis Accidental needlestick injury with exposure to body fluid- Primary Diagnosis Abnormal urine odor- Primary Other nonspecific finding on examination of urine Diagnosis Oligohydramnios antepartum, third trimester, fetus 1 Diagnosis delivery delivered delivery, without mention of indication, delivered, with or without mention of antepartum condition Labor and delivery indication for care or intervention Unspecified indication for care or intervention related to labor and delivery, unspecified as to episode of care Diagnosis Dysuria- Primary Diagnosis Exposure to needle, initial encounter- Primary Diagnosis Dysuria- Primary Diagnosis Urinary tract infection with hematuria, site unspecified- Primary Diagnosis Suspected abnormality of fetus affecting management of mother in delgado Summary Purpose Family History No Family History Records FoundNo Family History Records FoundNo Family History Records FoundNo Family History Records FoundNo Family History Records FoundNo Family History Records FoundNo Family History Records FoundNo Family History Records FoundNo Family History Records FoundNo Family History Records FoundNo Family History Records Found Advance Directives No Advanced Directives Records FoundDocuments on File Type Date Recorded 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 Advance Directives and Living Will Documents on File Type Date Recorded 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 Advance Directives and Livin g Will 12/05/2018 4:42 AM Latest Code Status on File Code Status Date Activated Date Inactivated Comments Full Code 10/07/2019 11:47 AM Latest Code Status on File Code Status Date Activated Date Inactivated Comments Full Code 10/10/2019 5:24 PM Full Code 10/10/2019 11:43 AM 10/10/2019 5:24 PM Full Code 10/07/2019 11:47 AM 10/08/2019 7:19 PM History of Present Illness * Rogelio Baker, [facility] - 06/22/2018 10:04 AM EST Chief Complaint Patient presents with Sore Throat began with sore throat x 2 days now vomiting and diarrhea ( about 8 weeks ) SUBJECTIVE 17 y.o. adult presents Sore Throat (began with sore throat x 2 days now vomiting and diarrhea ( about 8 weeks )) Thinks she is about 8 weeks preg. CC is ST and N,V and D x Monday. Sore Throat This is a new problem. The current episode started in the past 7 days. The problem has been unchanged. There has been no fever. The pain is at a severity of 6/10. The pain is moderate. Associated symptoms include congestion, coughing (little), diarrhea, headaches and vomiting. Pertinent negatives include no abdominal pain or shortness of breath. Associated symptoms comments: Sore throat. The treatment provided no relief. MEDICAL ISSUES No past medical history on file. There is no problem list on file for this patient. SOCIAL HISTORY Social History Socioeconomic History Marital status: Single Spouse name: Not on file Number of children: Not on file Years of education: Not on file Highest education level: Not on file Social Needs Financial resource strain: Not on file Food insecurity - worry: Not on file Food insecurity - inability: Not on file Transportation needs - medical: Not on file Transportation needs - non-medical: Not on file Occupational History Not on file Tobacco Use Smoking status: Never Smoker Smokeless tobacco: Never Used Substance and Sexual Activity Alcohol use: No Drug use: No Sexual activity: Yes Partners: Male control/protection: Pill, Condom Other Topics Concern Not on file Social History Narrative Not on file FAMILY HISTORY No family history on file. REVIEW OF SYSTEMS Review of Systems Constitutional: Positive for activity change, appetite change, chills and fatigue. Negative for fever. HENT: Positive for congestion and sore throat. Respiratory: Positive for cough (little). Negative for shortness of breath. Cardiovascular: Negative for chest pain. Gastrointestinal: Positive for diarrhea, nausea and vomiting. Negative for abdominal pain. Vomiting several x a day. Diarrhea started yesterday Genitourinary: Negative for dysuria, frequency and urgency. Musculoskeletal: Negative for myalgias. Skin: Negative for color change. Neurological: Positive for weakness and headaches. Hematological: Negative for adenopathy. Does not bruise/bleed easily. Psychiatric/Behavioral: Negative for agitation and behavioral problems. MEDICATIONS PRIOR TO VISIT Current Outpatient Medications on File Prior to Visit Medication Sig Dispense Refill vitamin with Ca-Iron-FA 27-1 mg Tab Take 1 tablet by mouth daily . norgestimate-ethinyl estradiol (ORTHO TRI-CYCLEN,TRINESSA) 0.18/0.215/0.25 mg-35 mcg (28) per tablet ondansetron (ZOFRAN-ODT) 8 MG disintegrating tablet Dissolve 1 (one) tablet (8 mg total) on top of tongue every 8 (eight) hours as needed for nausea. 90 tablet 0 No current facility-administered medications on file prior to visit. ALLERGIES/INTOLERANCES Allergies Allergen Reactions Augmentin [Amoxicillin-Pot Clavulanate] GI Intolerance Codeine GI Intolerance emesis Sulfa (Sulfonamide Antibiotics) GI Intolerance and Other (See Comments) OBJECTIVE BP 121/81 Pulse 63 Temp 97.8 F (36.6 C) Resp 16 Ht 5' 2 Wt 54.4 kg (120 lb) LMP 11/06/2017 (Exact Date) SpO2 98% BMI 21.95 kg/m Physical Exam Constitutional: He is oriented to person, place, and time. He appears well- developed and well-nourished. HENT: Head: Normocephalic and atraumatic. Eyes: Pupils are equal, round, and reactive to light. Cardiovascular: Normal rate and regular rhythm. Pulmonary/Chest: Effort normal and breath sounds normal. Abdominal: Soft. Bowel sounds are normal. He exhibits no distension. There is no tenderness. There is no rebound and no guarding. Musculoskeletal: Normal range of motion. Neurological: He is alert and oriented to person, place, and time. Skin: Skin is warm and dry. Psychiatric: He has a normal mood and affect. His behavior is normal. Vitals reviewed. PROCEDURE Procedures Results No results found for this or any previous visit (from the past 168 hour(s)). ASSESSMENT/PLAN (expressed as patient instructions): SNOMED CT(R) 1. Gastroenteritis GASTROENTERITIS 2. Sore throat SORE THROAT SYMPTOM POC Rapid Strep A No follow-ups on file. ADDITIONAL CLINICAL COMMENTS No notes on file ORDERS PLACED THIS VISIT Orders Placed This Encounter Procedures POC Rapid Strep A MEDICATION LIST AT END OF VISIT Current Outpatient Medications Medication Sig Dispense Refill vitamin with Ca-Iron-FA 27-1 mg Tab Take 1 tablet by mouth daily . norgestimate-ethinyl estradiol (ORTHO TRI-CYCLEN,TRINESSA) 0.18/0.215/0.25 mg-35 mcg (28) per tablet ondansetron (ZOFRAN-ODT) 8 MG disintegrating tablet Dissolve 1 (one) tablet (8 mg total) on top of tongue every 8 (eight) hours as needed for nausea. 90 tablet 0 No current facility-administered medications for this visit. in this encounter* Aleah Mejia CNP - 08/14/2018 3:55 PM EDT OFFICE VISIT PROGRESS NOTE HPI Sore Throat This is a new problem. The current episode started yesterday. The problem has been unchanged. The pain is worse on the left side. There has been no fever. The pain is at a severity of 3/10. Associated symptoms include ear pain, headaches and swollen glands. Pertinent negatives include no abdominal pain, diarrhea, drooling, neck pain, shortness of breath or vomiting. He has had no exposure to strep or mono. He has tried acetaminophen for the symptoms. The treatment provided no relief. Headache This is a new problem. The current episode started yesterday. The problem occurs intermittently. The problem has been unchanged. The pain is located in the bilateral region. The pain radiates to the face. The pain quality is not similar to prior headaches. The quality of the pain is described as aching. The pain is at a severity of 5/10. Associated symptoms include ear pain, sinus pressure, a sore throat and swollen glands. Pertinent negatives include no abdominal pain, eye redness, hearing loss, neck pain, phonophobia, photophobia, vomiting, weakness or weight loss. The symptoms are aggravated by coughing. He has tried acetaminophen for the symptoms. The treatment provided mild relief. Otalgia There is pain in the left ear. This is a new problem. The current episode started yesterday. The problem occurs constantly. The problem has been unchanged. There has been no fever. The pain is at a severity of 5/10. Associated symptoms include headaches and a sore throat. Pertinent negatives include no abdominal pain, diarrhea, hearing loss, neck pain or vomiting. He has tried acetaminophen for the symptoms. The treatment provided mild relief. The following portions of the patient's history were reviewed and updated as appropriate: allergies, current medications and problem list. No family history on file. Social History Socioeconomic History Marital status: Single Spouse name: None Number of children: None Years of education: None Highest education level: None Social Needs Financial resource strain: None Food insecurity - worry: None Food insecurity - inability: None Transportation needs - medical: None Transportation needs - non-medical: None Occupational History None Tobacco Use Smoking status: Never Smoker Smokeless tobacco: Never Used Substance and Sexual Activity Alcohol use: No Drug use: No Sexual activity: Yes Partners: Male control/protection: Pill, Condom Other Topics Concern None Social History Narrative None No past surgical history on file. Allergies Allergen Reactions Augmentin [Amoxicillin-Pot Clavulanate] GI Intolerance Codeine GI Intolerance emesis Sulfa (Sulfonamide Antibiotics) GI Intolerance and Other (See Comments) Medication List Accurate as of 08/14/18 5:24 PM. If you have any questions, ask your nurse or doctor. START taking these medications cefdinir 300 MG capsule Commonly known as: OMNICEF Take 1 (one) capsule (300 mg total) by mouth 2 (two) times a day for 7 days . Started by: Aleah Mejia CNP CONTINUE taking these medications norgestimate-ethinyl estradiol 0.18/0.215/0.25 mg-35 mcg (28) per tablet Commonly known as: ORTHO TRI-CYCLEN,TRINESSA ondansetron 8 MG disintegrating tablet Commonly known as: ZOFRAN-ODT Dissolve 1 (one) tablet (8 mg total) on top of tongue every 8 (eight) hours as needed for nausea. vitamin with Ca-Iron-FA 27-1 mg Tab Where to Get Your Medications These medications were sent to [address] [id number] cefdinir 300 MG capsule Review of Systems Review of Systems Constitutional: Negative. Negative for activity change and weight loss. HENT: Positive for ear pain, sinus pressure and sore throat. Negative for drooling and hearing loss. Eyes: Negative. Negative for photophobia and redness. Respiratory: Negative. Negative for chest tightness and shortness of breath. Cardiovascular: Negative for chest pain and palpitations. Gastrointestinal: Negative. Negative for abdominal pain, diarrhea and vomiting. Endocrine: Negative. Genitourinary: Negative. Musculoskeletal: Negative. Negative for neck pain. Skin: Negative. Neurological: Positive for headaches. Negative for weakness. Psychiatric/Behavioral: Negative. Vitals: 08/14/18 1545 BP: 102/66 BP Location: Left arm Patient Position: Sitting BP Cuff Size: Adult Pulse: 66 Resp: 15 Temp: 98.8 F (37.1 C) TempSrc: Temporal SpO2: 99% Weight: 54.7 kg (120 lb 9.6 oz) Body mass index is 22.06 kg/m . Physical Exam Physical Exam Constitutional: He is oriented to person, place, and time. He appears well- developed and well-nourished. HENT: Head: Normocephalic. Right Ear: Tympanic membrane is erythematous and bulging. Left Ear: Tympanic membrane is erythematous. Nose: Rhinorrhea present. No mucosal edema. Right sinus exhibits no maxillary sinus tenderness and no frontal sinus tenderness. Left sinus exhibits no maxillary sinus tenderness and no frontal sinus tenderness. Mouth/Throat: Mucous membranes are normal. Posterior oropharyngeal erythema present. No oropharyngeal exudate or posterior oropharyngeal edema. Eyes: Conjunctivae are normal. Neck: Normal range of motion. Cardiovascular: Normal rate and regular rhythm. Pulmonary/Chest: Effort normal and breath sounds normal. No respiratory distress. He has no wheezes. He has no rales. Abdominal: Soft. Bowel sounds are normal. He exhibits no distension. There is no tenderness. There is no rebound. Musculoskeletal: Normal range of motion. Neurological: He is alert and oriented to person, place, and time. Skin: Skin is warm and dry. Nursing note and vitals reviewed. Assessment/Plan Problem List Items Addressed This Visit None Visit Diagnoses Otitis media, unspecified laterality, unspecified otitis media type - Primary You can use imodium over the counter to help with GI upset as needed Relevant Medications cefdinir (OMNICEF) 300 MG capsule Goals None For any new medications prescribed today, patient was educated about indications for the medication, how to take the medication and potential side effects of the medications. documented in this encounter* Marlene Gasca CNP - 11/19/2018 8:47 AM EDT Subjective Patient ID: Shoaib Perez is a 18 y.o. adult. Patient presents to the office today for a well adult exam. Patient is doing well and has no complaints at this time. Review of Systems Constitutional: Negative for activity change, appetite change and fatigue. HENT: Negative for congestion, ear discharge and postnasal drip. Respiratory: Negative for cough and shortness of breath. Cardiovascular: Negative for chest pain and palpitations. Gastrointestinal: Negative for abdominal pain, constipation and diarrhea. Musculoskeletal: Negative for arthralgias, back pain and gait problem. Skin: Negative for color change. Neurological: Negative for dizziness, facial asymmetry, light-headedness and headaches. Psychiatric/Behavioral: Negative for agitation. The patient is not nervous/anxious. Objective Physical Exam Constitutional: He is oriented to person, place, and time. Vital signs are normal. He appears well-developed and well-nourished. HENT: Head: Normocephalic. Right Ear: Tympanic membrane, external ear and ear canal normal. Left Ear: Tympanic membrane, external ear and ear canal normal. Nose: Nose normal. Mouth/Throat: Uvula is midline and oropharynx is clear and moist. Eyes: Pupils are equal, round, and reactive to light. Conjunctivae are normal. Neck: Normal range of motion. Cardiovascular: Normal rate, regular rhythm and normal heart sounds. Pulmonary/Chest: Effort normal and breath sounds normal. Musculoskeletal: Normal range of motion. Lymphadenopathy: Head (right side): No submental, no submandibular, no tonsillar, no preauricular and no posterior auricular adenopathy present. Head (left side): No submental, no submandibular, no tonsillar, no preauricular and no posterior auricular adenopathy present. Neurological: He is alert and oriented to person, place, and time. Skin: Skin is warm and dry. Psychiatric: He has a normal mood and affect. His speech is normal and behavior is normal. Judgmentand thought content normal. Cognition and memory are normal. Assessment/Plan: Diagnoses and all orders for this visit: Well adult exam documented in this encounter* Paxton Sanchez LPN - 11/29/2018 10:50 AM EDT Pt in office with C/O of Foul odor from urine x 3 days. Pt denies garland, urgency or frequency. UA done in office. documented in this encounter* Sonia Bob LPN - 12/06/2018 10:18 AM EDT Patient was seen at the ED on 12/05/18. Patient is to follow up with Work Health. documented in this encounter* Dedrick Gilliland MD - 12/07/2018 10:00 AM EDT Chief Complaint Patient presents with New Patient Body fluid exposure Pt here for follow up of needle stick injury. 12/05/18 pt is on HIV exposure kit. HPI Patient seen, in clinic for a follow up. She was struck with a needle at the right thumb about 3 days ago while she was picking up a fallen pile of napkins at the patient bedside. Patient says this needle was used by the [employer] [employer] [facility] for drawing blood, but could not identify the patient it was usedfor. Patient then had gone to the Er, and was prescribed PEP. Patient had squeezed the are of injury and put alcohol wipes on it. No pain at the right thumb. Patient have never had similar incident from before. No fever, no chills., but she complained of nausea, and some mild dizziness since after starting the PEP. She had blood check for hepatitis B, C, and HIV which were negative. Suspect Patient also was checked of hepatitis and was negative. Past Medical History: Diagnosis Date Anemia, unspecified Immune thrombocytopenic purpura Low back pain Outpatient Medications Prior to Visit Medication Sig Dispense Refill CALCIUM PO Multiple Vitamin (MULTIVITAMIN PO) take 1 capsule by mouth daily.. Norgestim-Eth Estrad Triphasic (TRI-SPRINTEC PO) Norgestimate-Ethinyl Estradiol (TRI-SPRINTEC) 0.18/0.215/0.25 MG-35 MCG Tab take 1 tablet by mouth daily.. (Patient not taking: Reported on 12/07/2018) 3 Package 4 No facility-administered medications prior to visit. Allergies Allergen Reactions Augmentin [Amoxicillin-Pot Clavulanate] Nausea and Vomiting emesis Codeine Nausea and Vomiting emesis Sulfa Antibiotics Headache Chocolate Abdominal Discomfort Abdominal pain Milk Protein Abdominal Discomfort Abdominal pain Family History Problem Relation Age of Onset Lipid Disorder Mother high cholesterol Other - Specify Mother high blood pressure Multiple Sclerosis Mother Glaucoma Mother Migraines Mother Lipid Disorder Father high cholesterol Other - Specify Father high blood pressure Gout Father Migraines Sister Social History Socioeconomic History Marital status: Single Spouse name: Not on file Number of children: Not on file Years of education: Not on file Highest education level: Not on file Occupational History Not on file Social Needs Financial resource strain: Not on file Food insecurity: Worry: Not on file Inability: Not on file Transportation needs: Medical: Not on file Non-medical: Not on file Tobacco Use Smoking status: Never Smoker Smokeless tobacco: Never Used Substance and Sexual Activity Alcohol use: No Drug use: Not on file Sexual activity: Yes Partners: Male control/protection: Pill, Condom Lifestyle Physical activity: Days per week: Not on file Minutes per session: Not on file Stress: Not on file Relationships Social connections: Talks on phone: Not on file Gets together: Not on file Attends restorationist service: Not on file Active member of club or organization: Not on file Attends meetings of clubs or organizations: Not on file Relationship status: Not on file Intimate partner violence: Fear of current or ex partner: Not on file Emotionally abused: Not on file Physically abused: Not on file Forced sexual activity: Not on file Other Topics Concern Not on file Social History Narrative Not on file Review of Systems Constitutional: Negative for chills, fever, malaise/fatigue and weight loss. HENT: Negative for ear discharge, ear pain and nosebleeds. Respiratory: Negative for cough, hemoptysis, shortness of breath and wheezing. Cardiovascular: Negative for chest pain, palpitations, orthopnea and leg swelling. Gastrointestinal: Negative for abdominal pain, constipation, diarrhea, nausea and vomiting. Genitourinary: Negative for dysuria, frequency, hematuria and urgency. Musculoskeletal: Negative for back pain, joint pain and myalgias. Skin: Negative for itching and rash. Neurological: Negative for dizziness, tremors, seizures, loss of consciousness, weakness and headaches. Psychiatric/Behavioral: Negative for depression. The patient does not have insomnia. Examination: BP 102/58 Pulse (Heart Rate) 77 Resp Rate 12 Temp 98.1 F (36.7 C) Temp source Temporal O2 Sat (%) 99 % Weight 54 kg (119 lb) Height 1.549 m (5' 1 ) Physical Exam Constitutional: She is oriented to person, place, and time and well-developed, well-nourished, and in no distress. HENT: Head: Normocephalic. Neck: Neck supple. Cardiovascular: Regular rhythm and normal heart sounds. No murmur heard. Pulmonary/Chest: No respiratory distress. She has no wheezes. She exhibits no tenderness. Abdominal: There is no tenderness. There is no rebound and no guarding. Musculoskeletal: She exhibits no edema. Right thumb with evidence of needle prick Lymphadenopathy: She has no cervical adenopathy. Neurological: She is alert and oriented to person, place, and time. Anxious+ Skin: Skin is warm. Psychiatric: Memory, affect and judgment normal. Labs: I reviewed patients labs. Negative test for hep B, C, and HIV , lab of 12/05/18 Assess; Patient with Needle stick. Unknown source. Exposure to Bodily fluid. Though low risk Plans: Patient already on PEP. Complete therapy Will continue therapy. For a total of 28 days. I have counseled patient on job safety. Ok with zofran for N/v prn Some excuse for work missed due to n/v. Complete immunisations for hepatits B Patient s/p Tdap Repeat labs in 6 weeks. All medications, and side effects, were adequately explained to patient. Antibiotic therapy risks and allergic reactions including rashes, diarrhea, C. diff colitis, angioedema and Umaña-Chris like reaction were also discussed , and all questions answered, with patient expressing understanding. Over 50% of the clinic visit was involved in Discussion of Diagnosis, Plan, Infection Control , Prevention and Follow up. I have spent enough clinical quality time on face to face evaluation of patient, with/without family member, and reviewing medical records. There are no diagnoses linked to this encounter. Dedrick Gilliland MD Nurse Note: Review of Systems Constitutional: Negative. HENT: Negative. Eyes: Negative. Respiratory: Negative. Cardiovascular: Negative. Gastrointestinal: Negative. Endocrine: Negative. Genitourinary: Negative. Musculoskeletal: Negative. Skin: Negative. Allergic/Immunologic: Negative. Neurological: Negative. Hematological: Negative. Psychiatric/Behavioral: Negative. Nursing Assessment: Physical Exam Pt alert and oriented times 3. Pt had a needle stick on 12/05/18 and is on exposure kit med. * She Perez LPN - 12/07/2018 10:00 AM EDT Nurse Note: Review of Systems Constitutional: Negative. HENT: Negative. Eyes: Negative. Respiratory: Negative. Cardiovascular: Negative. Gastrointestinal: Negative. Endocrine: Negative. Genitourinary: Negative. Musculoskeletal: Negative. Skin: Negative. Allergic/Immunologic: Negative. Neurological: Negative. Hematological: Negative. Psychiatric/Behavioral: Negative. Nursing Assessment: Physical Exam Pt alert and oriented times 3. Pt had a needle stick on 12/05/18 and is on exposure kit med. documented in this encounter* Paxton Sanchez LPN - 03/12/2019 2:41 PM EST Pt in office for Urinary odor x 1 week. Pt denies any pain or dysuria. Pt states she think she Is preganat and has an apt with women's care next week. UA ran in office and Per Dr. Vila pt self swabbed for vaginitis DNA probe. PT made Aware this office will call with results. documented in this encounter* Isamar Arenas MD - 10/08/2019 5:44 AM EDT Maternal Medicine Service Resident Progress Note 10/08/2019 5:44 AM 10/07/2019 Hospital Day: 2 Shoaib Perez, 18 y.o. 34w4d Patient has been seen and examined. Pt has no acute complaints. Positive movement Negative vaginal bleeding Negative LOF Negative Contractions Vitals: 10/07/19 1043 10/07/19 1241 10/07/19 1759 10/07/19 2057 BP: 126/77 133/89 115/82 Pulse: 69 63 85 Resp: 16 18 15 Temp: 98.2 F (36.8 C) 97.7 F (36.5 C) 97.9 F (36.6 C) TempSrc: Temporal Temporal SpO2: 99% 97% Weight: 147 lb 11 oz (67 kg) 147 lb (66.7 kg) Height: 5' 3 (1.6 m) 5' 1 (1.549 m) FHT: 120, moderate variability Accels: present Decels: absent Contractions: rare Physical Exam: Gen: NAD HEENT: Normocephalic, Atraumatic, EOMI, MMM Resp: CTABL, no WRR Card: RRR S1S2 Abd: soft, gravid, NTND, no rebound, no guarding. No Fundal tenderness Ext: No LE edema, no calf tenderness or swelling Medications: Current Facility-Administered Medications Medication Dose Route Frequency Provider Last Rate Last Dose sodium chloride flush 0.9 % injection 10 mL 10 mL Intravenous 2 times per day Rose Mary Smith MD 10 mL at 10/07/192101 sodium chloride flush 0.9 % injection 10 mL 10 mL Intravenous PRN Rose Mary Smith MD acetaminophen (TYLENOL) tablet 650 mg 650 mg Oral Q4H PRN Rose Mary Smith MD Or acetaminophen (TYLENOL) suppository 650 mg 650 mg Rectal Q4H PRN Rose Mary Smith MD promethazine (PHENERGAN) tablet 12.5 mg 12.5 mg Oral Q6H PRN Rose Mary Smith MD Or ondansetron (ZOFRAN) injection 4 mg 4 mg Intravenous Q6H PRN Rose Mary Smith MD vitamin 27-1 MG tablet 1 tablet 1 tablet Oral Daily Rose Mary Smith MD docusate sodium (COLACE) capsule 100 mg 100 mg Oral BID PRN Isamar Arenas MD lactated ringers infusion Intravenous Continuous Jeff Laws DO 125 mL/hr at 10/08/19 0000 Assessment/Plan: Shoaib Perez is a 18 y.o. 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 - outpatient ANFS: twice weekly NST with fluid check, weekly UAD - S/p consultation with Pediatric Orthopedic Surgery has been accomplished. - Neonatology at delivery, ENVIRONMENTAL ENGINEERING ASSISTANT updated yes - plan for consultation with Pediatric Orthopedic Surgery and Medical Genetics History of lumbosacral surgery - Rods, screws, and cage around L5 - Anesthesia consulted Immune thrombocytopenic purpura - plts 79 on admission - discussed with Dr. Cash of Hematology, recommended prednisone to allow for spinal anesthesia ifdelivered Rh negative - S/p rhogam at 28w, pos anti-D on T&S - Rhogam as indicated IUP @ 34w4d - No OB complaints - Breech - General diet - CEFM - SOPHIA today - NICU consulted and ENVIRONMENTAL ENGINEERING ASSISTANT notified - PNV - GBS bacteriuria Further plan pending d/w attending. Isamar Arenas MD 10/08/2019, 5:44 AM Associated attestation - Nhung Pope MD - 10/08/2019 1:29 PM EDT I performed a history and physical examination on the patient and discussed the management with theresident physician. I reviewed and agree with the findings and plan as documented in their note today. 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 Formal hematology consult for steroid taper, suspect delivery in the next week. Hope to avoid transfusion and GETA. No RH negative platelets are available and would have to transfuse RH positive platelets with rhogam if needed. History of ITP and lumbosacral surgery s/p anesthesia consult I spent 15 minutes in the visit today on the floor reviewing the chart, discussing the case with the residency staff and nursing Nhung Pope MD * Isamar Arenas MD - 10/07/2019 6:07 PM EDT Plts 79. 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 Risk of delivery tomorrow given oligo. Discussed with Dr. Cash of hematology. Will treat thrombocytopenia with prednisone 1 mg/kg. Deferred formal consult. Discussed with Dr. Ferguson and LINER MAN. Formal consult to anesthesia placed given ITP and hx of back surgery. Will give the prednisone tonight. Will try for spinal anesthesia if delivery is necessary. documented in this encounter* Martinez Stapleton MD - 10/12/2019 6:12 AM EDT POST DAY # 2 Shoaib Perez is a 18 y.o. female This patient was seen & examined today. Her was complicated by: Patient Active Problem List Diagnosis Suspected abnormality of fetus affecting management of mother in delgado abnormality affecting management of mother Oligohydramnios antepartum, third trimester, fetus 1 Labor and delivery indication for care or intervention Today she is doing well without any chief complaint. She has met all milestones including adequate pain control on standard medication, stable lochia, spontaneous voiding, passing flatus/BM, tolerating solids and liquids, and ambulation. Vital Signs: Vitals: 10/11/19 0420 10/11/19 0917 10/11/19 1115 10/11/19 1953 BP: 101/61 117/73 118/69 127/83 Pulse: 65 56 67 75 Resp: 18 14 16 16 Temp: 97.5 F (36.4 C) 97.7 F (36.5 C) 97.6 F (36.4 C) 97.7 F (36.5 C) TempSrc: Temporal Temporal Temporal Temporal SpO2: 97% 98% 98% 98% Weight: Height: Urine Input & Output last 24hrs: Intake/Output Summary (Last 24 hours) at 10/12/2019 0613 Last data filed at 10/11/2019 0900 Gross per 24 hour Intake Output 300 ml Net -300 ml Physical Exam: General: no apparent distress, alert and cooperative Affect: appropriate Lungs: No increased work of breathing, good air exchange, clear to auscultation bilaterally, no crackles or wheezing Heart: regular rate and rhythm Abdomen: abdomen soft, non-distended, non-tender Fundus: non-tender, normal size, firm, below umbilicus Incision: clean, dry and intact Extremities: no calf tenderness, non edematous Labs: Lab Results Component Value Date WBC 18.3 (H) 10/10/2019 HGB 10.1 (L) 10/11/2019 HCT 35.3 10/10/2019 MCV 93.2 10/10/2019 PLT 87 (L) 10/11/2019 O NEG Antibody Screen: Antibody Screen Date Value Ref Range Status 10/10/2019 POS NA Final No results found for: RUBELLAIGG Assessment/Plan: 1. Shoaib Perez is a POD # 2 s/p PLTCS 2/2 anomaly/anhydramnios - Doing well, VSS - male infant, at [facility] - Encourage ambulation and use of incentive spirometer ITP - patient diagnosed at age 15 - has not followed with hematology since that time ([place], [place]) - Hematology consulted 10/07 while inpatient for platelets of 79 - has been on decadron 40mg since 10/07 (has taken 3 of 4 doses) - plts on admission 90 - lochia light, currently asx, VSS History of lumbosacral surgery - Rods, screws, and cage around L5 Rh negative - S/p rhogam at 28w - Rhogam if indicated 2. Contraception: per private attending 3. VTE Prophylaxis: Not Indicated 4. Continue current care Provider's Name: DO Ana Paula Redman DO 10/12/2019, 6:13 AM Wants discharge to home today, baby at [facility]. I reviewed and agree with the care provided by the resident/CNM during the visit including the patient's medical history, the resident's findings in the physical exam, patient's diagnosis and treatment plan. * Sherine Chi RN - 10/11/2019 7:01 PM EDT Pt still off unit visiting at [facility]. Called and stated she would be back to unit by 1999 * Sherine Chi RN - 10/11/2019 4:05 PM EDT Mom still off unit, doing well per pt mother who has spoke to pt on phone * Sherine Chi RN - 10/11/2019 1:[address] guadalupe states to check platelet count as soon as pt is back from [facility] * Sherine Chi RN - 10/11/2019 12:30 PM EDT Pt off unit to visit at [facility] * Sherine Chi RN - 10/11/2019 12:00 PM EDT Quarter size amount of blood on ABD from abdominal incision. No new drainage coming from incision. Dr. Rai is at bedside * Sherine Chi RN - 10/11/2019 11:[address] guadalupe paged: pt showered and I took her dressing off, she is a little umm with fresh blood on her incision, since she is leaving the hospital, do you mind just coming up to look at it? States will come look at pt at 1200 * Dunia Kim IBCLC - 10/11/2019 11:19 AM EDT Pt has been pumping drops of colostrum no milk yet . She has a new medela pump for home use. Discussed establishment and timing of mature milk arrival and enc observation of pumping as needed. Enc continue to pump 8 or more times per 24 hours and label henry, bring to NICU as soon as she can. Discussed milk storage guidelines, pump regimen and cleaning. Denies questions or needs at this time. * Sherine Chi RN - 10/11/2019 11:00 AM EDT Verbal order taken by Dr. Rai for pt to have a therapeutic pass to visit infant at [facility] today. * Lidia Ramos DO - 10/11/2019 6:11 AM EDT POST DAY # 1 Shoaib Perez is a 18 y.o. female This patient was seen & examined today. Her was complicated by: Patient Active Problem List Diagnosis Suspected abnormality of fetus affecting management of mother in delgado abnormality affecting management of mother Oligohydramnios antepartum, third trimester, fetus 1 Labor and delivery indication for care or intervention Today she is doing well without any chief complaint. Her lochia is light. She denies chest pain, shortness of breath, headache, lightheadedness and blurred vision. She is ambulating well. Flatus absent. Bowel movement absent. Catheter just removed so pt has not voided yet. She is tolerating solids.Pain is controlled yes. Vital Signs: Vitals: 10/10/19 1743 10/10/19 2122 10/11/19 0002 10/11/19 0420 BP: 133/88 133/84 103/60 101/61 Pulse: 105 81 68 65 Resp: 16 18 16 18 Temp: 96.4 F (35.8 C) 97.4 F (36.3 C) 97.6 F (36.4 C) 97.5 F (36.4 C) TempSrc: Temporal Temporal Temporal Temporal SpO2: 97% 96% 98% 97% Weight: Height: Urine Input & Output last 24hrs: Intake/Output Summary (Last 24 hours) at 10/11/2019 06 Last data filed at 10/11/2019 0525 Gross per 24 hour Intake 1000 ml Output 4490 ml Net -3490 ml Physical Exam: General: no apparent distress, alert and cooperative Affect: appropriate Lungs: No increased work of breathing, good air exchange, clear to auscultation bilaterally, no crackles or wheezing Heart: regular rate and rhythm Abdomen: abdomen soft, non-distended, non-tender Fundus: non-tender, normal size, firm, below umbilicus Incision: clean, dry and intact with dressing in place Extremities: no calf tenderness, non edematous Labs: Lab Results Component Value Date WBC 18.3 (H) 10/10/2019 HGB 12.0 10/10/2019 HCT 35.3 10/10/2019 MCV 93.2 10/10/2019 PLT 90 (L) 10/10/2019 O NEG Antibody Screen: Antibody Screen Date Value Ref Range Status 10/10/2019 POS NA Final No results found for: RUBELLAIGG LABOR DELIVERY ??? SCD's ONLY (labor through ambulation) SCD's PLUS Prophylactic Anticoagulation until discharge SCD's PLUS Prophylactic Anticoagulation for 6 weeks SCD's PLUS Therapeutic Anticoagulation for 6 weeks Vaginal Delivery [] BMI ? 40 kg/m2 Delivery All patients Vaginal Delivery [] BMI ? 40 kg/m2 AND [] Antepartum hospitalization ? 72 hours within the past month Delivery 1 Major Risk Factor: [] BMI ? 35 kg/m2 [] Low Risk Thrombophilia [] PPH+RBCs, IR, or operation [] Infection+Antibiotics [] Antepartum hospitalization ? 72 hours within the past month [] PMH: Sickle Cell, SLE, Cardiac Dz, Active IBD, Active Cancer, Nephrotic Syndrome OR 2 Minor Risk Factors: [] Multiple gestation [] Age > 40 [] PPH ? 1,000cc [] (+)FMH of VTE [] Smoker [] Preeclampsia [] BMI ? 40 kg/m2 AND [] Low Risk Thrombophilia OR ANY OF THE FOLLOWING: [] High Risk Thrombophilia without prior VTE [] Low Risk Thrombophilia with (+)FMH of VTE [] Any single prior VTE ANY OF THE FOLLOWING: [] Already on LMWH/UFH [] Multiple prior VTE [] High Risk Thrombophilia with prior VTE Low Risk Thrombophilia: FVL (heterozygous), Prothrombin (heterozygous), Protein C, Protein S High Risk Thrombophilia: FVL (homozygous), Prothrombin (homozygous), FVL+Prothrombin (heterozygous), Antithrombin III, APLS Assessment/Plan: 1. Shoaib Perez is a POD # 1 s/p PLTCS 2/2 anomalies/anhydramnios - Doing well, VSS - male infant at [facility] NICU - Encourage ambulation and use of incentive spirometer - D/C posadas catheter and saline lock IV on POD #1 - Postop Hb pending 2. Contraception:per private attending 3. VTE Prophylaxis: Not Indicated 4. Continue current care ITP - patient diagnosed at age 15 - has not followed with hematology since that time ([place], [place]) - Hematology consulted 10/07 while inpatient for platelets of 79 - has been on decadron 40mg since 10/07 (has taken 3 of 4 doses) - plts on admission 90 History of lumbosacral surgery - Rods, screws, and cage around L5 Rh negative - S/p rhogam at 28w - Rhogam as indicated Provider's Name: DO Mendoza Redman MD 10/11/2019, 6:11 AM I reviewed and agree with the care provided by the resident/CNM during the visit including the patient's medical history, the resident's findings in the physical exam, patient's diagnosis and treatment plan. * Mleonie Moses RN - 10/10/2019 5:29 PM EDT Pt saturated 2 pink brien pads while in recovery, Dr. Johnson aware and will continue to monitor patient's bleeding . * Melonie Moses RN - 10/10/2019 4:54 PM EDT Spoke with blood bank and baby boy cord blood is in process and blood bank will contact us when result finalized. [place]'s MR number is [id number]. * Melonie Moses RN - 10/10/2019 4:34 PM EDT Transport team at bedside with in isolette to see mother and give patient updates before transferring to [facility]. * Melonie Moses RN - 10/10/2019 4:06 PM EDT [facility] transporter at bedside speaking with patient. documented in this encounter* Marlene Gasca, NIKOLE - 02/28/2020 2:00 PM EDT OFFICE VISIT PROGRESS NOTE Shoaib Perez is a 19 y.o. female with a past medical history of Patient Active Problem List Diagnosis Dysuria who presents to the office today with complaints of a UTI Urinary Tract Infection This is a new problem. The current episode started in the past 7 days. The problem occurs every urination. The problem has been waxing and waning. The quality of the pain is described as aching. There has been no fever. The fever has been present for less than 1 day. She is sexually active. There is no history of pyelonephritis. Associated symptoms include frequency, hesitancy and urgency. Pertinent negatives include no chills, discharge, flank pain, hematuria, nausea, possible or sweats. She has tried nothing for the symptoms. Health Maintenance Topic Date Due Chlamydia Screening 1998 Pap Smear 1998 HPV Vaccines (1 - 2-dose series) 2009 Depression Screening (PHQ9) 2010 HIV Screening 2013 Hepatitis C Screening 2016 Wellness Visit 11/20/2019 Tetanus: Every 10yrs 09/25/2029 Sequential Influenza Vaccine Completed The following portions of the patient's history were reviewed and updated as appropriate: allergies, current medications and problem list. History reviewed. No pertinent family history. Social History Socioeconomic History Marital status: Single Spouse name: Not on file Number of children: Not on file Years of education: Not on file Highest education level: Not on file Occupational History Not on file Social Needs Financial resource strain: Not on file Food insecurity Worry: Not on file Inability: Not on file Transportation needs Medical: Not on file Non-medical: Not on file Tobacco Use Smoking status: Never Smoker Smokeless tobacco: Never Used Substance and Sexual Activity Alcohol use: No Drug use: No Sexual activity: Yes Partners: Male control/protection: Pill, Condom Lifestyle Physical activity Days per week: Not on file Minutes per session: Not on file Stress: Not on file Relationships Social connections Talks on phone: Not on file Gets together: Not on file Attends restorationist service: Not on file Active member of club or organization: Not on file Attends meetings of clubs or organizations: Not on file Relationship status: Not on file Other Topics Concern Not on file Social History Narrative Not on file History reviewed. No pertinent surgical history. Allergies Allergen Reactions Augmentin [Amoxicillin-Pot Clavulanate] GI Intolerance Codeine GI Intolerance emesis Sulfa (Sulfonamide Antibiotics) GI Intolerance and Other (See Comments) Patient's Medications New Prescriptions CEPHALEXIN (KEFLEX) 500 MG CAPSULE Take 1 (one) capsule (500 mg total) by mouth 2 (two) times a day. Previous Medications No medications on file Modified Medications No medications on file Discontinued Medications NITROFURANTOIN, MACROCRYSTAL-MONOHYDRATE, (MACROBID) 100 MG CAPSULE Take 1 (one) capsule (100 mg total) by mouth 2 (two) times a day . PREDNISONE (DELTASONE) 10 MG TABLET Take 4 tablets po x 3 day, then 3 tablets x 3 days, then 2 tablets x 3 days, then 1 tablet x 3 days. . Review of Systems Review of Systems Constitutional: Negative for activity change, appetite change, chills and fatigue. Respiratory: Negative for cough and shortness of breath. Cardiovascular: Negative for chest pain and palpitations. Gastrointestinal: Negative for nausea. Genitourinary: Positive for frequency, hesitancy and urgency. Negative for flank pain and hematuria. Neurological: Negative for dizziness, facial asymmetry, light-headedness and headaches. Psychiatric/Behavioral: Negative for agitation. The patient is not nervous/anxious. Vitals: 02/27/20 1546 BP: 105/64 BP Location: Right arm Patient Position: Sitting BP Cuff Size: Adult Pulse: (!) 58 Resp: 18 Temp: 97.7 F (36.5 C) TempSrc: Temporal SpO2: 98% There is no height or weight on file to calculate BMI. Physical Exam Physical Exam Vitals signs reviewed. Constitutional: Appearance: Normal appearance. She is well-developed. HENT: Head: Normocephalic. Eyes: General: Lids are normal. Pulmonary: Effort: Pulmonary effort is normal. Musculoskeletal: Normal range of motion. Skin: General: Skin is warm and dry. Neurological: General: No focal deficit present. Mental Status: She is alert and oriented to person, place, and time. Coordination: Coordination is intact. Gait: Gait is intact. Psychiatric: Attention and Perception: Attention normal. Mood and Affect: Mood normal. Speech: Speech normal. Behavior: Behavior normal. Behavior is cooperative. Thought Content: Thought content normal. Cognition and Memory: Cognition normal. Judgment: Judgment normal. OARRS/NARxCHECK Report Received and Assessed: No data found Date controlled substance agreement signed: No data found Date of last drug screen: No data found Functional Assessment: No data found The ASCVD Risk score (Roney DC Jr., et al., 2013) failed to calculate for the following reasons: The 2013 ASCVD risk score is only valid for ages 40 to 79 Assessment/Plan Problem List Items Addressed This Visit Other Dysuria - Primary Your urine dip that was completed in the office today shows leukocytes, we have sent the remainder of your urine to culture and I have sent Keflex into your pharmacy. This medication is safe to take with breast-feeding. We will contact you with results of your urine culture when they return to the office. At your appointment today you prescribed an antibiotic. Please take this medication as directed, and complete the entire treatment. Please note that some antibiotics can cause an upset stomach and/ordiarrhea. If you develop an upset stomach while taking the antibiotic, please eat something small when taking this medication. To prevent diarrhea you to take a probiotic which can be found [id number] or eat yogurt twicea day. Relevant Medications cephALEXin (KEFLEX) 500 MG capsule Other Relevant Orders POC Urinalysis Dipstick, Auto (Completed) Urine Aerobic Culture Goals None For any new medications prescribed today, patient was educated about indications for the medication, how to take the medication and potential side effects of the medications. Please note: Portions of this chart may have been created with [employer] voice recognition software. Occasional wrong-word or sound-like substitutions may have occurred due to inherent limitations of the voice recognition software. Please read the chart carefully and recognize, using context, where the substitutions have occurred. documented in this encounter* Emerson Carroll MD - 09/11/2019 3:08 PM EDT Department of Obstetrics and Gynecology Labor and Delivery Triage Note CHIEF COMPLAINT: 4/8 BPP in office HISTORY OF PRESENT ILLNESS: The patient is a 18 y.o. 30w5d. OB History 2 Para 0 Term AB 1 Living SAB 1 TAB Ectopic Molar Multiple Live Births Patient presents with a chief complaint as above. Patient sent in from office for 4/8BPP and decreased SOPHIA. Concern for ROM. Patient denies any leaking or vaginal discharge. Denies any cramping or other obstetrical complaints. Denies BENTLEY, VC, N/V, CP, SOB. denies DFM/VB/LOF/CTX Estimated Due Date: Estimated Date of Delivery: 11/15/19 PAST MEDICAL HISTORY: Past Medical History: Diagnosis Date Anemia with low platelet count (HCC) PAST SURGICAL HISTORY: Past Surgical History: Procedure Laterality Date BACK SURGERY back fusion at L5 TONSILLECTOMY SOCIAL HISTORY: reports that she has never smoked. She has never used smokeless tobacco. She reports that she does not drink alcohol or use drugs. MEDICATIONS: Prior to Admission medications Medication Sig Start Date End Date Taking? Authorizing Provider Vit-Fe Fumarate-FA ( 1+1 PO) Take by mouth Yes Historical Provider, CARE: Complicated by: 1. Arthrogryposis 2. Hx ITP 3. Rh Negative REVIEW OF SYSTEMS: Pertinent items are noted in HPI. APPEARANCE: Pain: no PHYSICAL EXAM: Vital Signs: VS wnl-reviewed/Respirations normal effort Vitals: 09/11/19 1419 Weight: 140 lb (63.5 kg) Height: 5' 1 (1.549 m) Abdomen: soft, NT, ND, no rebound/guarding Uterus: gravid/non-tender LE Edema: 1+ Speculum Exam: no pooling of fluid seen, Nitrizine test is negative, Ferning test is negative, wet prep results: no pathogens heart rate: Category I Cervix: Visually closed Contraction frequency: none Membranes: Intact RESULTS: NST: Reactive GENERAL LABS: No results found for this or any previous visit (from the past 24 hour(s)). TRIAGE COURSE: Patient sent in from [facility] office with 4/8 BPP. Has known arthrogryposis. BPP off for movement and breathing. Sent in for NST and to ROM rupture of membranes as SOPHIA was low but above 5cm. ROM-x3, patient comfortable. Low concern for PPROM. NST reactive with no decelerations. Total 6/10 BPP today, will follow up in office tomorrow for modified BPP IMPRESSION: Abnormal testing DISCUSSED WITH [facility] PROVIDER: Dr. Ferguson DISPOSITION: Discharge to Home Associated attestation - Jagdish Hutner III, MD - 09/11/2019 3:44 PM EDT I reviewed and agree with the care provided by the resident/CNM during the visit including the patient's medical history, the resident's findings in the physical exam, patient's diagnosis and treatment plan. documented in this encounter Discharge Instructions * Instructions* Emerson Carroll MD - 09/23/2019 Follow up appointment with your doctor/deli worker - Keep next scheduled appointment Activity - Normal Activity Call your doctor/deli worker if you have: - leaking fluid - vaginal bleeding - regular contractions: More than 6 contractions in one hour - decreased movement - worsening abdominal (belly) pain - headache, blurry vision, increased swelling, upper abdominal pain Treatment Verification: Shoaib Perez was assessed on Labor and Delivery for a related visit on 09/23/19. Emerson Carroll MD [facility] If you are Covid-19 positive or a Person Under Investigation (PUI): If you are in labor and you have, or think you may have COVID-19, call your OB care provider and the hospital birthing unit before you go, so the staff can properly prepare and protect you, your babyand others from being infected. Wear a mask when you leave your home, as you will be asked to continue to wear a mask during your time in the hospital. Prevention steps for People with confirmed or suspected COVID-19 (including persons under investigation) who do not need to be hospitalized and People with confirmed COVID-19 who were hospitalized and determined to be medically stable to go home Your healthcare provider and public health staff will evaluate whe ther you can be cared for at home. If it is determined that you do not need to be hospitalized and can be isolated at home, you willbe monitored by staff from your local or state health department. You should follow the prevention steps below until a healthcare provider or local or state health department says you can return to your normal activities. Stay home except to get medical care People who are mildly ill with COVID-19 are able to isolate at home during their illness. You should restrict activities outside your home, except for getting medical care. Do not go to work, school,or public areas. Avoid using public transportation, ride-sharing, or taxis. Separate yourself from other people and animals in your home People: As much as possible, you should stay in a specific room and away from other people in your home. Also, you should use a separate bathroom, if available. Animals: You should restrict contact with pets and other animals while you are sick with COVID-19, just like you would around other people. Although there have not been reports of pets or other animals becoming sick with COVID-19, it is still recommended that people sick with COVID-19 limit contactwith animals until more information is known about the virus. When possible, have another member of your household care for your animals while you are sick. If you are sick with COVID-19, avoid contact with your pet, including petting, snuggling, being kissed or licked, and sharing food. If you must care for your pet or be around animals while you are sick, wash your hands before and after you interact with pets and wear a facemask. Call ahead before visiting your doctor If you have a medical appointment, call the healthcare provider and tell them that you have or may have COVID-19. This will help the healthcare provider's office take steps to keep other people from getting infected or exposed. Wear a facemask You should wear a facemask when you are around other people (e.g., sharing a room or vehicle) or pets and before you enter a healthcare provider's office. If you are not able to wear a facemask (for example, because it causes trouble breathing), then people who live with you should not stay in the same room with you, or they should wear a facemask if they enter your room. Cover your coughs and sneezes Cover your mouth and nose with a tissue when you cough or sneeze. Throw used tissues in a lined trash can. Immediately wash your hands with soap and water for at least 20 seconds or, if soap and water are not available, clean your hands with an alcohol-based hand head of ict that contains at least 60% alcohol. Clean your hands often Wash your hands often with soap and water for at least 20 seconds, especially after blowing your nose, coughing, or sneezing; going to the bathroom; and before eating or preparing food. If soap and water are not readily available, use an alcohol-based hand head of ict with at least 60% alcohol, covering all surfaces of your hands and rubbing them together until they feel dry. Soap and water are the best option if hands are visibly dirty. Avoid touching your eyes, nose, and mouth with unwashed hands. Avoid sharing personal household items You should not share dishes, drinking glasses, cups, eating utensils, towels, or bedding with otherpeople or pets in your home. After using these items, they should be washed thoroughly with soap and water. Clean all high-touch surfaces everyday High touch surfaces include counters, tabletops, doorknobs, bathroom fixtures, toilets, phones, keyboards, tablets, and bedside tables. Also, clean any surfaces that may have blood, stool, or body fluids on them. Use a household cleaning spray or wipe, according to the label instructions. Labels contain instructions for safe and effective use of the cleaning product including precautions you should take when applying the product, such as wearing gloves and making sure you have good ventilation during use of the product. Monitor your symptoms Seek prompt medical attention if your illness is worsening (e.g., difficulty breathing). Before seeking care, call your healthcare provider and tell them that you have, or are being evaluated for, COVID-19. Put on a facemask before you enter the facility. These steps will help the healthcare provider's office to keep other people in the office or waiting room from getting infected or exposed. [place]our healthcare provider to call the local or [facility]. Persons who are placed underactive monitoring or facilitated self- monitoring should follow instructions provided by their localhealth department or occupational health professionals, as appropriate. When working with your local health department check their available hours. If you have a medical emergency and need to call 911, notify the dispatch personnel that you have, or are being evaluated for COVID-19. If possible, put on a facemask before emergency medical services arrive. Discontinuing home isolation Patients with confirmed COVID-19 should remain under home isolation precautions until the risk of secondary transmission to others is thought to be low. The decision to discontinue home isolation precautions should be made on a nnul-oi-rpcc basis, in consultation with healthcare providers and [facility]. Information on Covid-19 for all patients Call your provider before your next appointment if you develop any of the following symptoms: fever, cough, fatigue, anorexia, shortness of breath, sputum production, and muscle pains. Headache, confusion, rhinorrhea, sore throat, hemoptysis, vomiting, and diarrhea have been reported but are less common. Some persons with COVID-19 have experienced gastrointestinal symptoms such as diarrhea and nausea prior to developing fever and lower respiratory tract signs and symptoms. Ways to [place] with Anxiety & Stress It is normal to feel anxious or worried about COVID-19. You might feel sad about canceling celebrations and staying away from family and friends. Keep in mind that most people do not get severely ill from COVID-19. It is important to have a planin case you get sick to prevent spreading the disease to others including an Advanced Care Plan (communicating and documenting your desired health care plan with family and healthcare team). You can take care of yourself by: ? Taking a break from watching the news ? Take deep breaths, stretch or meditate ? Getting exercise, eating healthy foods, and drinking plenty of water ? Finding activities you can enjoy inside your home ? Staying in touch with your family and friends. Tell your partner, family, and friends how you arefeeling. Advance Care Planning People with COVID-19 may have no symptoms, mild symptoms, such as fever, cough, and shortness of breath or they may have more severe illness, developing severe and fatal pneumonia. As a result, Advance Care Planning with attention to naming a health care decision maker (someone you trust to make healthcare decisions for you if you could not speak for yourself) and sharing other health care prefere nces is important BEFORE a possible health crisis. Please contact your Primary Care Provider to discuss Advance Care Planning. Learning About Coronavirus (COVID-19) Coronavirus (COVID-19): Overview What is coronavirus (COVID-19)? The coronavirus disease (COVID-19) is caused by a virus. It is an illness that was first found in [facility], in March 2019. It has since spread worldwide. The virus can cause fever, cough, and trouble breathing. In severe cases, it can cause pneumonia and make it hard to breathe without help. It can cause . Coronaviruses are a large group of viruses. They cause the common cold. They also cause more serious illnesses like [place] respiratory syndrome (MERS) and severe acute respiratory syndrome (SARS). COVID-19 is caused by a novel coronavirus. That means it's a new type that has not been seen in people before. This virus spreads fyarom-tn-cphrak through droplets from coughing and sneezing. It can also spreadwhen you are close to someone who is infected. And it can spread when you touch something that has the virus on it, such as a doorknob or a tabletop. What can you do to protect yourself from coronavirus (COVID-19)? The best way to protect yourself from getting sick is to: Avoid areas where there is an outbreak. Avoid contact with people who may be infected. Wash your hands often with soap or alcohol-based hand sanitizers. Avoid crowds and try to stay at least 6 feet away from other people. Wash your hands often, especially after you cough or sneeze. Use soap and water, and scrub for at least 20 seconds. If soap and water aren't available, use an alcohol-based hand head of ict. Call 911 anytime you think you may need emergency care. For example, call if: You have severe trouble breathing. (You can't talk at all.) You have constant chest pain or pressure. You are severely dizzy or lightheaded. You are confused or can't think clearly. Your face and lips have a blue color. You pass out (lose consciousness) or are very hard to wake up. Call your doctor now if you develop symptoms such as: Shortness of breath. Fever. Cough. If you need to get care, call ahead to the doctor's office for instructions before you go. Make sure you wear a face mask, if you have one, to prevent exposing other people to the virus. Where can you get the latest information? The following health organizations are tracking and studying this virus. Their websites contain themost up-to-date information. You'll also learn what to do if you think you may have been exposed tothe virus. U.S. Centers for Disease Control and Prevention (CDC): The CDC provides updated news about the disease and travel advice. The website also tells you how to prevent the spread of infection. www.cdc.gov World Health Organization (WHO): WHO offers information about the virus outbreaks. WHO also has travel advice. www.who.int Current as of: July 31, 2019 Content Version: 12. [employer]. Care instructions adapted under license by your healthcare professional. If you have questions about a medical condition or this instruction, always ask your healthcare professional. [employer] disclaims any warranty or liability for your use of this information. General Recommendations for Routine Cleaning and Disinfection of Households Community members can practice routine cleaning of frequently touched surfaces (for example: tables, doorknobs, light switches, handles, desks, toilets, faucets, sinks) with household bolt cutter and EPA-registered disinfectants that are appropriate for the surface, following label instructions. Labels contain instructions for safe and effective use of the cleaning product including precautions you should take when applying the product, such as wearing gloves and making sure you have good ventilation during use of the product. These guidelines are focused on household settings and are meant for the general public. ? Cleaning refers to the removal of germs, dirt, and impurities from surfaces. Cleaning does not kill germs, but by removing them, it lowers their numbers and the risk of spreading infection. ? Disinfecting refers to using chemicals to kill germs on surfaces. This process does not necessarily clean dirty surfaces or remove germs, but by killing germs on a surface after cleaning, it can further lower the risk of spreading infection. General Recommendations for Cleaning and Disinfection of Households with People Isolated in Home Care - Confirmed or suspected COVID 19 ? Household members should educate themselves about COVID-19 symptoms and preventing the spread of COVID-19 in homes. ? Clean and disinfect high-touch surfaces daily in household common areas (e.g. tables, hard-backedchairs, doorknobs, light switches, remotes, handles, desks, toilets, sinks) o In the bedroom/bathroom dedicated for an ill person: consider reducing cleaning frequency to as-needed (e.g., soiled items and surfaces) to avoid unnecessary contact with the ill person. ? As much as possible, an ill person should stay in a specific room and away from other people in their home. ? The caregiver can provide personal cleaning supplies for an ill person's room and bathroom, unless the room is occupied by child or another person for whom such supplies would not be appropriate. These supplies include tissues, paper towels, bolt cutter and EPA-registered disinfectants (see list link at CDC website). ? If a separate bathroom is not available, the bathroom should be cleaned and disinfected after each use by an ill person. If this is not possible, the caregiver should wait as long as practical after use by an ill person to clean and disinfect the high-touch surfaces. How to clean and disinfect: Hard Surfaces ? Wear disposable gloves when cleaning and disinfecting surfaces. Gloves should be discarded after each cleaning. If reusable gloves are used, those gloves should be dedicated for cleaning and disinfection of surfaces for COVID-19 and should not be used for other purposes. Consult the grain combiner's instructions for cleaning and disinfection products used. Clean hands immediately after gloves areremoved. ? If surfaces are dirty, they should be cleaned using a detergent or soap and water prior to disinfection. ? For disinfection, diluted household bleach solutions, alcohol solutions with at least 70% alcohol, and most common EPA-registered household disinfectants should be effective. o Diluted household bleach solutions can be used if appropriate for the surface. Follow grain combiner's instructions for application and proper ventilation. Check to ensure the product is not past itsexpiration date. Never mix household bleach with ammonia or any other cleanser. Unexpired householdbleach will be effective against coronaviruses when properly diluted. ? Prepare a bleach solution by mixing: ? 5 tablespoons (1/3rd cup) bleach per gallon of water or ? 4 teaspoons bleach per quart of water o Products with EPA-approved emerging viral pathogens claimspdf iconexternal icon are expected to be effective against COVID-19 based on data for harder to kill viruses. Follow the grain combiner's instructions for all cleaning and disinfection products (e.g., concentration, application method and contact time, etc.). Soft (porous) surfaces such as carpeted floor, rugs, and drapes Remove visible contamination if present and clean with appropriate bolt cutter indicated for use on these surfaces. After cleaning: Launder items as appropriate in accordance with the grain combiner's instructions. If possible, launder items using the warmest appropriate water setting for the items and dry items completely, or Clothing, towels, linens and other items that go in the laundry ? Wear disposable gloves when handling dirty laundry from an ill person and then discard after eachuse. If using reusable gloves, those gloves should be dedicated for cleaning and disinfection of surfaces for COVID-19 and should not be used for other household purposes. Clean hands immediately after gloves are removed. o If no gloves are used when handling dirty laundry, be sure to wash hands afterwards. o If possible, do not shake dirty laundry. This will minimize the possibility of dispersing virus through the air. o Launder items as appropriate in accordance with the grain combiner's instructions. If possible, launder items using the warmest appropriate water setting for the items and dry items completely. Dirtylaundry from an ill person can be washed with other people's items. o Clean and disinfect clothes hampers according to guidance above for surfaces. If possible, consider placing a bag worker that is either disposable (can be thrown away) or can be laundered. CDC has a list of EPA approved cleaning products on their website - https://www.cdc.gov/coronavirus/ 2019-ncov/community/home/cleaning-disinfection.html https://www.[employer]/Krmra-Ysjmhlwuwhp-Xeorabbp-Products-List.pdf Grocery Stores with delivery and pick pack worker services: [employer]: Free pick pack worker at locations Delivery is $12.95 a month Website - [employer] [place]: Fire Services Plumber $2.95 (1st order is free) Delivery is $14.95 Website [employer] [place]: cell operation supervisor is free Delivery is $5.95 [employer]: cell operation supervisor is $4.95 Delivery is $9.95 Website [employer]: cell operation supervisor is $4.95 Delivery is $9.95 Website [employer]: Can be ordered for delivery and pick pack worker with [employer] Website - www.[employer]: Free deliver for first 3 orders of $35 or more Website [employer] Will deliver from [facility], [employer], [employer], and [employer]. Annual membership is $99 Monthly membership is $14 chambers documented in this encounter* Instructions* Isamar Arenas MD - 10/08/2019 Follow up appointment with your doctor/deli worker - Keep next scheduled appointment Activity - Normal Activity Call your doctor/deli worker if you have: - leaking fluid - vaginal bleeding - regular contractions: More than 6 contractions in one hour - decreased movement - worsening abdominal (belly) pain - headache, blurry vision, increased swelling, upper abdominal pain Treatment Verification: Shoaib Perez was assessed on Labor and Delivery for a related visit on 10/08/19. Isamar Arenas MD [facility] If you are Covid-19 positive or a Person Under Investigation (PUI): If you are in labor and you have, or think you may have COVID-19, call your OB care provider and the hospital birthing unit before you go, so the staff can properly prepare and protect you, your babyand others from being infected. Wear a mask when you leave your home, as you will be asked to continue to wear a mask during your time in the hospital. Prevention steps for People with confirmed or suspected COVID-19 (including persons under investigation) who do not need to be hospitalized and People with confirmed COVID-19 who were hospitalized and determined to be medically stable to go home Your healthcare provider and public health staff will evaluate whe ther you can be cared for at home. If it is determined that you do not need to be hospitalized and can be isolated at home, you willbe monitored by staff from your local or state health department. You should follow the prevention steps below until a healthcare provider or local or state health department says you can return to your normal activities. Stay home except to get medical care People who are mildly ill with COVID-19 are able to isolate at home during their illness. You should restrict activities outside your home, except for getting medical care. Do not go to work, school,or public areas. Avoid using public transportation, ride-sharing, or taxis. Separate yourself from other people and animals in your home People: As much as possible, you should stay in a specific room and away from other people in your home. Also, you should use a separate bathroom, if available. Animals: You should restrict contact with pets and other animals while you are sick with COVID-19, just like you would around other people. Although there have not been reports of pets or other animals becoming sick with COVID-19, it is still recommended that people sick with COVID-19 limit contactwith animals until more information is known about the virus. When possible, have another member of your household care for your animals while you are sick. If you are sick with COVID-19, avoid contact with your pet, including petting, snuggling, being kissed or licked, and sharing food. If you must care for your pet or be around animals while you are sick, wash your hands before and after you interact with pets and wear a facemask. Call ahead before visiting your doctor If you have a medical appointment, call the healthcare provider and tell them that you have or may have COVID-19. This will help the healthcare provider's office take steps to keep other people from getting infected or exposed. Wear a facemask You should wear a facemask when you are around other people (e.g., sharing a room or vehicle) or pets and before you enter a healthcare provider's office. If you are not able to wear a facemask (for example, because it causes trouble breathing), then people who live with you should not stay in the same room with you, or they should wear a facemask if they enter your room. Cover your coughs and sneezes Cover your mouth and nose with a tissue when you cough or sneeze. Throw used tissues in a lined trash can. Immediately wash your hands with soap and water for at least 20 seconds or, if soap and water are not available, clean your hands with an alcohol-based hand head of ict that contains at least 60% alcohol. Clean your hands often Wash your hands often with soap and water for at least 20 seconds, especially after blowing your nose, coughing, or sneezing; going to the bathroom; and before eating or preparing food. If soap and water are not readily available, use an alcohol-based hand head of ict with at least 60% alcohol, covering all surfaces of your hands and rubbing them together until they feel dry. Soap and water are the best option if hands are visibly dirty. Avoid touching your eyes, nose, and mouth with unwashed hands. Avoid sharing personal household items You should not share dishes, drinking glasses, cups, eating utensils, towels, or bedding with otherpeople or pets in your home. After using these items, they should be washed thoroughly with soap and water. Clean all high-touch surfaces everyday High touch surfaces include counters, tabletops, doorknobs, bathroom fixtures, toilets, phones, keyboards, tablets, and bedside tables. Also, clean any surfaces that may have blood, stool, or body fluids on them. Use a household cleaning spray or wipe, according to the label instructions. Labels contain instructions for safe and effective use of the cleaning product including precautions you should take when applying the product, such as wearing gloves and making sure you have good ventilation during use of the product. Monitor your symptoms Seek prompt medical attention if your illness is worsening (e.g., difficulty breathing). Before seeking care, call your healthcare provider and tell them that you have, or are being evaluated for, COVID-19. Put on a facemask before you enter the facility. These steps will help the healthcare provider's office to keep other people in the office or waiting room from getting infected or exposed. As[place]our healthcare provider to call the local or [facility]. Persons who are placed underactive monitoring or facilitated self- monitoring should follow instructions provided by their localhealth department or occupational health professionals, as appropriate. When working with your local health department check their available hours. If you have a medical emergency and need to call 911, notify the dispatch personnel that you have, or are being evaluated for COVID-19. If possible, put on a facemask before emergency medical services arrive. Discontinuing home isolation Patients with confirmed COVID-19 should remain under home isolation precautions until the risk of secondary transmission to others is thought to be low. The decision to discontinue home isolation precautions should be made on a wysb-ce-ovnq basis, in consultation with healthcare providers and [facility]. Information on Covid-19 for all patients Call your provider before your next appointment if you develop any of the following symptoms: fever, cough, fatigue, anorexia, shortness of breath, sputum production, and muscle pains. Headache, confusion, rhinorrhea, sore throat, hemoptysis, vomiting, and diarrhea have been reported but are less common. Some persons with COVID-19 have experienced gastrointestinal symptoms such as diarrhea and nausea prior to developing fever and lower respiratory tract signs and symptoms. Ways to [place] with Anxiety & Stress It is normal to feel anxious or worried about COVID-19. You might feel sad about canceling celebrations and staying away from family and friends. Keep in mind that most people do not get severely ill from COVID-19. It is important to have a planin case you get sick to prevent spreading the disease to others including an Advanced Care Plan (communicating and documenting your desired health care plan with family and healthcare team). You can take care of yourself by: ? Taking a break from watching the news ? Take deep breaths, stretch or meditate ? Getting exercise, eating healthy foods, and drinking plenty of water ? Finding activities you can enjoy inside your home ? Staying in touch with your family and friends. Tell your partner, family, and friends how you arefeeling. Advance Care Planning People with COVID-19 may have no symptoms, mild symptoms, such as fever, cough, and shortness of breath or they may have more severe illness, developing severe and fatal pneumonia. As a result, Advance Care Planning with attention to naming a health care decision maker (someone you trust to make healthcare decisions for you if you could not speak for yourself) and sharing other health care prefere nces is important BEFORE a possible health crisis. Please contact your Primary Care Provider to discuss Advance Care Planning. Learning About Coronavirus (COVID-19) Coronavirus (COVID-19): Overview What is coronavirus (COVID-19)? The coronavirus disease (COVID-19) is caused by a virus. It is an illness that was first found in [facility], in March 2019. It has since spread worldwide. The virus can cause fever, cough, and trouble breathing. In severe cases, it can cause pneumonia and make it hard to breathe without help. It can cause . Coronaviruses are a large group of viruses. They cause the common cold. They also cause more serious illnesses like [place] respiratory syndrome (MERS) and severe acute respiratory syndrome (SARS). COVID-19 is caused by a novel coronavirus. That means it's a new type that has not been seen in people before. This virus spreads ockipl-ym-snuqby through droplets from coughing and sneezing. It can also spreadwhen you are close to someone who is infected. And it can spread when you touch something that has the virus on it, such as a doorknob or a tabletop. What can you do to protect yourself from coronavirus (COVID-19)? The best way to protect yourself from getting sick is to: Avoid areas where there is an outbreak. Avoid contact with people who may be infected. Wash your hands often with soap or alcohol-based hand sanitizers. Avoid crowds and try to stay at least 6 feet away from other people. Wash your hands often, especially after you cough or sneeze. Use soap and water, and scrub for at least 20 seconds. If soap and water aren't available, use an alcohol-based hand head of ict. Call 911 anytime you think you may need emergency care. For example, call if: You have severe trouble breathing. (You can't talk at all.) You have constant chest pain or pressure. You are severely dizzy or lightheaded. You are confused or can't think clearly. Your face and lips have a blue color. You pass out (lose consciousness) or are very hard to wake up. Call your doctor now if you develop symptoms such as: Shortness of breath. Fever. Cough. If you need to get care, call ahead to the doctor's office for instructions before you go. Make sure you wear a face mask, if you have one, to prevent exposing other people to the virus. Where can you get the latest information? The following health organizations are tracking and studying this virus. Their websites contain themost up-to-date information. You'll also learn what to do if you think you may have been exposed tothe virus. U.S. Centers for Disease Control and Prevention (CDC): The CDC provides updated news about the disease and travel advice. The website also tells you how to prevent the spread of infection. www.cdc.gov World Health Organization (WHO): WHO offers information about the virus outbreaks. WHO also has travel advice. www.who.int Current as of: July 31, 2019 Content Version: 12.4 [employer]. Care instructions adapted under license by your healthcare professional. If you have questions about a medical condition or this instruction, always ask your healthcare professional. [employer] disclaims any warranty or liability for your use of this information. General Recommendations for Routine Cleaning and Disinfection of Households Community members can practice routine cleaning of frequently touched surfaces (for example: tables, doorknobs, light switches, handles, desks, toilets, faucets, sinks) with household bolt cutter and EPA-registered disinfectants that are appropriate for the surface, following label instructions. Labels contain instructions for safe and effective use of the cleaning product including precautions you should take when applying the product, such as wearing gloves and making sure you have good ventilation during use of the product. These guidelines are focused on household settings and are meant for the general public. ? Cleaning refers to the removal of germs, dirt, and impurities from surfaces. Cleaning does not kill germs, but by removing them, it lowers their numbers and the risk of spreading infection. ? Disinfecting refers to using chemicals to kill germs on surfaces. This process does not necessarily clean dirty surfaces or remove germs, but by killing germs on a surface after cleaning, it can further lower the risk of spreading infection. General Recommendations for Cleaning and Disinfection of Households with People Isolated in Home Care - Confirmed or suspected COVID 19 ? Household members should educate themselves about COVID-19 symptoms and preventing the spread of COVID-19 in homes. ? Clean and disinfect high-touch surfaces daily in household common areas (e.g. tables, hard-backedchairs, doorknobs, light switches, remotes, handles, desks, toilets, sinks) o In the bedroom/bathroom dedicated for an ill person: consider reducing cleaning frequency to as-needed (e.g., soiled items and surfaces) to avoid unnecessary contact with the ill person. ? As much as possible, an ill person should stay in a specific room and away from other people in their home. ? The caregiver can provide personal cleaning supplies for an ill person's room and bathroom, unless the room is occupied by child or another person for whom such supplies would not be appropriate. These supplies include tissues, paper towels, bolt cutter and EPA-registered disinfectants (see list link at CDC website). ? If a separate bathroom is not available, the bathroom should be cleaned and disinfected after each use by an ill person. If this is not possible, the caregiver should wait as long as practical after use by an ill person to clean and disinfect the high-touch surfaces. How to clean and disinfect: Hard Surfaces ? Wear disposable gloves when cleaning and disinfecting surfaces. Gloves should be discarded after each cleaning. If reusable gloves are used, those gloves should be dedicated for cleaning and disinfection of surfaces for COVID-19 and should not be used for other purposes. Consult the grain combiner's instructions for cleaning and disinfection products used. Clean hands immediately after gloves areremoved. ? If surfaces are dirty, they should be cleaned using a detergent or soap and water prior to disinfection. ? For disinfection, diluted household bleach solutions, alcohol solutions with at least 70% alcohol, and most common EPA-registered household disinfectants should be effective. o Diluted household bleach solutions can be used if appropriate for the surface. Follow grain combiner's instructions for application and proper ventilation. Check to ensure the product is not past itsexpiration date. Never mix household bleach with ammonia or any other cleanser. Unexpired householdbleach will be effective against coronaviruses when properly diluted. ? Prepare a bleach solution by mixing: ? 5 tablespoons (1/3rd cup) bleach per gallon of water or ? 4 teaspoons bleach per quart of water o Products with EPA-approved emerging viral pathogens [facility] iconexternal icon are expected to be effective against COVID-19 based on data for harder to kill viruses. Follow the grain combiner's instructions for all cleaning and disinfection products (e.g., concentration, application method and contact time, etc.). Soft (porous) surfaces such as carpeted floor, rugs, and drapes Remove visible contamination if present and clean with appropriate bolt cutter indicated for use on these surfaces. After cleaning: Launder items as appropriate in accordance with the grain combiner's instructions. If possible, launder items using the warmest appropriate water setting for the items and dry items completely, or Clothing, towels, linens and other items that go in the laundry ? Wear disposable gloves when handling dirty laundry from an ill person and then discard after eachuse. If using reusable gloves, those gloves should be dedicated for cleaning and disinfection of surfaces for COVID-19 and should not be used for other household purposes. Clean hands immediately after gloves are removed. o If no gloves are used when handling dirty laundry, be sure to wash hands afterwards. o If possible, do not shake dirty laundry. This will minimize the possibility of dispersing virus through the air. o Launder items as appropriate in accordance with the grain combiner's instructions. If possible, launder items using the warmest appropriate water setting for the items and dry items completely. Dirtylaundry from an ill person can be washed with other people's items. o Clean and disinfect clothes hampers according to guidance above for surfaces. If possible, consider placing a bag worker that is either disposable (can be thrown away) or can be laundered. CDC has a list of EPA approved cleaning products on their website - https://www.cdc.gov/coronavirus/ 2019-ncov/community/home/cleaning-disinfection.html https://www.Easy Pairings/Krtzs-Awhjsphokxz-Oalekczz-Products-List.pdf Grocery Stores with delivery and pick pack worker services: [employer]: Free pick pack worker at locations Delivery is $12.95 a month Website - [employer] [place]: Fire Services Plumber $2.95 (1st order is free) Delivery is $14.95 Website [employer] [place]: cell operation supervisor is free Delivery is $5.95 [employer]: cell operation supervisor is $4.95 Delivery is $9.95 [employer]: cell operation supervisor is $4.95 Delivery is $9.95 op5 [employer]: Can be ordered for delivery and pick pack worker with [employer] Website - [employer]Trivop [employer]: Free deliver for first 3 orders of $35 or more Website [employer] Will deliver from [facility], [facility], [employer], and [employer]. Annual membership is $99 Monthly membership is $14 chambers documented in this encounter* Instructions* Martinez Stapleton MD - 10/12/2019 After Your Delivery (the Period): Your Care Instructions Congratulations on the of your baby. Like , the period can be a time of excitement, dm, and exhaustion. You may look at your wondrous little baby and feel happy. You may also be overwhelmed by your new sleep hours and new responsibilities. In these first weeks after delivery, try to take good care of yourself. It may take 4 to 6 weeks to feel like yourself again, and possibly longer if you had a . You will likely feel very tired for several weeks. Your dayswill be full of ups and downs, but lots of dm as well. FOLLOW-UP: Your follow-up care is a garcia part of your treatment and safety. Follow-up with your OB doctor in 1 week if you have had blood pressure issues/pre-eclampsia or have been started on blood pressure medication while in the hospital, 2 weeks if you had a 3rd or 4th degree tear or as specified by your physician. Be sure to make and go to all appointments, and call your doctor if you are having problems. It's also a good idea to know your test results and keep a list of the medicines you take. BLEEDING Vaginal bleeding will decrease in amount over the next few weeks. Bleeding may pick pack worker and then decrease again around 7-10 days . Use pads instead of tampons for the bloody flow that may last as long as 2 weeks. You will notice that as your activity increases, your flow may increase. Call your doctor if you are saturating one maxi pad in an hour & passing large clots for 3 hours or more. ACTIVITY NO SEXUAL activity for 6 weeks or until advised by your doctor; Nothing in vagina: intercourse, tampons, or douching. Showering is okay; No tub baths, swimming, or hot tubs. Gradually increase your activity. Resume exercise regimen only after advice by your doctor. Avoid lifting anything heavier than your baby or a gallon of milk for six weeks. Avoid driving 1 week or longer if you are on prescription pain medicine unless otherwise instructedby your doctor. Rise slowly from a lying to sitting and then a standing position. Climb stairs carefully. Use caution when carrying your baby up and down the stairs. You may feel tired or have a lack of energy. You may continue your vitamin to replenish nutrients post delivery. Nap when baby naps to catch up on sleep. EMOTIONS You may feel davey, sad, teary, & overwhelmed for the first 2 weeks ; however, feelings of post depression may occur any time within the first year after delivery. Contact your OB provider if you feel you may be showing signs of depression, or have thoughts of harming yourself or your infant. If infant will not stop crying, contact another adult for help or place infant in their crib on their back and take a break. NEVER shake your . WOUND CARE For Vaginal Delivery: Shower daily, and cleanse your perineum (bottom) with mild soap from front to Back. Use the plasticsquirt bottle until bleeding stops each time you use the restroom instead of wiping with toilet paper. Ease soreness of hemorrhoids and the area between your vagina and rectum with ice compresses or witch ceasar pads. If used, stitches will dissolve in 4-6 weeks on their own. You may use a sitz bath or soak in a clean tub with drain open and water running for comfort. If you have had a 3rd or 4th degree laceration please take a stool softener daily and avoid any straining with bowel movements. Call immediately if you become incontinent of stool or flatus. For Section Delivery: Keep your incision clean and dry. If you had steri-strips you may remove these once they start falling off. If you have lily they need to be removed 3-10 days after delivery. If you have steri-strips, remove after 7 - 10 days. Do not wear clothing that irritates the incision line. If your incision in in a crease that is not dry, use a hair-dryer to dry the area 3 times a day. If you develop fever, shaking chills, redness, swelling, drainage or discharge from your wound, or if your wound looks like it's coming apart call your doctor immediately. BREAST CARE If you develop a warm, red, tender area on your breast or develop a fever contact your doctor. For moms: If you become engorged, feeding may be more difficult or painful for 1-2 days. You may find it helpful to hand express some milk so that the can latch on more easily or ease soreness with wet,warm washcloths. While , continue to take your vitamins as directed by your doctor. For non- moms: You may apply ice packs to your breasts over you bra for twenty minutes at a time for comfort. Cabbage leaves may be applied to breasts, replace when wilted. Avoid stimulation to your breasts, when showering allow the water to strike your back not your breasts. Do not express milk or your body will make more. Wear a good fitting bra until your milk dries, such as a sports bra. DIET & CONSTIPATION Eat a well balanced diet focusing on foods high in fiber and protein such as: whole grain cereals and breads, fruits and vegetables and legumes (eg, beans, lentils) Drink 8-10 glasses of fluids daily, especially water. To avoid constipation you may take a mild rzxw-xck-brclyra stool softener (such as colace) as recommended by your doctor. SWELLING It is normal to have an increase in swelling the first 7-10 days after delivery. Try to keep your legs elevated when you are sitting or lying down. Stay hydrated and take walks. If one leg looks more swollen than the other, there is redness on that leg or tenderness please call you doctor. BABY Babies sleep safest on their back in a crib without bumpers, blankets or stuffed animals. Do not sleep with your baby in your bed or the couch. Do not expose baby to smoke, this can increase risks of asthma and sudden syndrome. Ifyou or someone around baby smokes have them change their shirt and wash any facial hair before holding baby. Do not smoke inside the house and change the ventilation filters in the house before bringing baby home. WHEN TO CALL THE DOCTOR Signs of infection, including fever and chills Increased bleeding: soaking more than one sanitary pad an hour for 2-3 hours. Wounds that become red, swollen or drain pus Vaginal discharge that smells foul Pain that you can't control with the medications you've been given Pain, burning, urgency or frequency of urination, or persistent bleeding in the urine Stool incontinence. Cough, shortness of breath, or chest pain Depression, suicidal thoughts, or feelings of harming your baby Breasts that are hot, red and accompanied by fever Any cracking or bleeding from the nipple or areola (the dark-colored area of the breast) In case of an emergency, call 911 immediately. documented in this encounter* Attachments The following attachments cannot be sent through Care Everywhere. * [place] [facility] BODY FLUID EXPOSURE documented in this encounter* Instructions* Emerson Carroll MD - 09/11/2019 Follow up appointment with your doctor/deli worker - Call office for appointment in 1days Activity - Normal Activity Call your doctor/deli worker if you have: - leaking fluid - vaginal bleeding - regular contractions: More than 6 contractions in one hour - decreased movement - worsening abdominal (belly) pain - headache, blurry vision, increased swelling, upper abdominal pain Treatment Verification: Shoaib Perez was assessed on Labor and Delivery for a related visit on 09/11/19. Emerson Carroll MD [facility] Information for all patients regarding Covid-19 Learning About Coronavirus (COVID-19) Coronavirus (COVID-19): Overview What is coronavirus (COVID-19)? The coronavirus disease (COVID-19) is caused by a virus. It is an illness that was first found in [facility], in March 2019. It has since spread worldwide. The virus can cause fever, cough, and trouble breathing. In severe cases, it can cause pneumonia and make it hard to breathe without help. It can cause . Coronaviruses are a large group of viruses. They cause the common cold. They also cause more serious illnesses like [place] respiratory syndrome (MERS) and severe acute respiratory syndrome (SARS). COVID-19 is caused by a novel coronavirus. That means it's a new type that has not been seen in people before. This virus spreads ufhpyo-xc-bbdnoa through droplets from coughing and sneezing. It can also spreadwhen you are close to someone who is infected. And it can spread when you touch something that has the virus on it, such as a doorknob or a tabletop. What can you do to protect yourself from coronavirus (COVID-19)? The best way to protect yourself from getting sick is to: Avoid areas where there is an outbreak. Avoid contact with people who may be infected. Wash your hands often with soap or alcohol-based hand sanitizers. Avoid crowds and try to stay at least 6 feet away from other people. Wash your hands often, especially after you cough or sneeze. Use soap and water, and scrub for at least 20 seconds. If soap and water aren't available, use an alcohol-based hand head of ict. Avoid touching your mouth, nose, and eyes. What can you do to avoid spreading the virus to others? To help avoid spreading the virus to others: Cover your mouth with a tissue when you cough or sneeze. Then throw the tissue in the trash. Wear a face mask if in public areas. Use a disinfectant to clean things that you touch often. Stay home if you are sick or have been exposed to the virus. Don't go to school, work, or public areas. And don't use public transportation. If you are sick: ? Leave your home only if you need to get medical care. But call the doctor's office first so they know you're coming. And wear a face mask, if you have one. ? If you have a face mask, wear it whenever you're around other people. It can help stop the spreadof the virus when you cough or sneeze. ? Clean and disinfect your home every day. Use household bolt cutter and disinfectant wipes or sprays.Take special care to clean things that you grab with your hands. These include doorknobs, remote controls, phones, and handles on your refrigerator and microwave. And don't forget countertops, tabletops, bathrooms, and computer keyboards. When to call for help Call 911 anytime you think you may need emergency care. For example, call if: You have severe trouble breathing. (You can't talk at all.) You have constant chest pain or pressure. You are severely dizzy or lightheaded. You are confused or can't think clearly. Your face and lips have a blue color. You pass out (lose consciousness) or are very hard to wake up. Call your doctor now if you develop symptoms such as: Shortness of breath. Fever. Cough. If you need to get care, call ahead to the doctor's office for instructions before you go. Make sure you wear a face mask, if you have one, to prevent exposing other people to the virus. Where can you get the latest information? The following health organizations are tracking and studying this virus. Their websites contain themost up-to-date information. You'll also learn what to do if you think you may have been exposed tothe virus. U.S. Centers for Disease Control and Prevention (CDC): The CDC provides updated news about the disease and travel advice. The website also tells you how to prevent the spread of infection. www.cdc.gov World Health Organization (WHO): WHO offers information about the virus outbreaks. WHO also has travel advice. www.who.int Current as of: July 31, 2019 Content Version: 12.4 [employer]. Care instructions adapted under license by your healthcare professional. If you have questions about a medical condition or this instruction, always ask your healthcare professional. [employer] disclaims any warranty or liability for your use of this information. If Covid-19 + or PUI ? A healthy caregiver should be identified to care for the baby at home. ? Mothers with confirmed or suspected COVID-19 infection at the time of discharge should continue to take appropriate droplet precautions once home until you are free of symptoms, including strict hand hygiene and cough etiquette, maintaining a minimum distance of 6 feet from the infant and/or indiv iduals at home whenever possible, and practicing appropriate hand hygiene/PPE if required to care for the infant. ? You should plan with your provider about cessation of isolation procedures based on CDC guidelines; Symptom free, no fever, without antipyretics is a reasonable guide. Steps to help prevent the spread of COVID-19 if you are sick SOURCE - https://www.cdc.gov/coronavirus/2019-ncov/about/ovpzp-zqnh-aspv.html Stay home except to get medical care ; Stay home: People who are mildly ill with COVID-19 are able to isolate at home during their illness. You should restrict activities outside your home, except for getting medical care. ; Avoid public areas: Do not go to work, school, or public areas. ; Avoid public transportation: Avoid using public transportation, ride-sharing, or taxis. ; Separate yourself from other people and animals in your home ; Stay away from others: As much as possible, you should stay in a specific room and away from other people in your home. Also, you should use a separate bathroom, if available. ; Limit contact with pets & animals: You should restrict contact with pets and other animals while you are sick with COVID-19, just like you would around other people. Although there have not been reports of pets or other animals becoming sick with COVID-19, it is still recommended that people sick with COVID-19 limit contact with animals until more information is known about the virus. ; When possible, have another member of your household care for your animals while you are sick. Ifyou are sick with COVID-19, avoid contact with your pet, including petting, snuggling, being kissedor licked, and sharing food. If you must care for your pet or be around animals while you are sick,wash your hands before and after you interact with pets and wear a facemask. See COVID-19 and Animals for more information. Other considerations ? The ill person should eat/be fed in their room if possible. Non-disposable food sanitarian items used should be handled with gloves and washed with hot water or in a souvenir and novelty maker. Clean hands after handling used food sanitarian items. ? If possible, dedicate a lined trash can for the ill person. Use gloves when removing garbage bags, handling, and disposing of trash. Wash hands after handling or disposing of trash. ? Consider consulting with your local health department about trash disposal guidance if available. Coronavirus (COVID-19): Care Instructions Overview The coronavirus disease (COVID-19) is caused by a virus. It causes a fever, a cough, and shortness of breath. It mainly spreads bgjhfs-mt-vyqzag through droplets from coughing and sneezing. The virusalso can spread when people are in close contact with someone who is infected. Most people have mild symptoms and can take care of themselves at home. If their symptoms get worse, they may need care in a hospital. There is no medicine to fight the virus. It's important to not spread the virus to others. You need to isolate yourself while you are sick. Your doctor will tell you when you no longer need to be isolated. Leave your home only if you need to get medical care. Follow-up care is a garcia part of your treatment and safety. Be sure to make and go to all appointments, and call your doctor if you are having problems. It's also a good idea to know your test resultsand keep a list of the medicines you take. How can you care for yourself at home? Get extra rest. It can help you feel better. Drink plenty of fluids. This helps replace fluids lost from fever. Fluids also help ease a scratchythroat. Water, soup, fruit juice, and hot tea with lemon are good choices. Take acetaminophen (such as Tylenol) to reduce a fever. It may also help with muscle aches. Read and follow all instructions on the label. Sponge your body with lukewarm water to help with fever. Don't use cold water or ice. Use petroleum jelly on sore skin. This can help if the skin around your nose and lips becomes sore from rubbing a lot with tissues. Tips for isolation Wear a face mask, if you have one, when you are around other people. It can help stop the spread ofthe virus when you cough or sneeze. Limit contact with people in your home. If possible, stay in a separate bedroom and use a separate bathroom. Avoid contact with pets and other animals. Cover your mouth and nose with a tissue when you cough or sneeze. Then throw it in the trash right away. Wash your hands often, especially after you cough or sneeze. Use soap and water, and scrub for at least 20 seconds. If soap and water aren't available, use an alcohol-based hand head of ict. Don't share personal household items. These include bedding, towels, cups and glasses, and eating utensils. Clean and disinfect your home every day. Use household bolt cutter and disinfectant wipes or sprays. Take special care to clean things that you grab with your hands. These include doorknobs, remote controls, phones, and handles on your refrigerator and microwave. And don't forget countertops, tabletops, bathrooms, and computer keyboards. When should you call for help? Call 911 anytime you think you may need emergency care. For example, call if you have life-threatening symptoms, such as: You have severe trouble breathing. (You can't talk at all.) You have constant chest pain or pressure. You are severely dizzy or lightheaded. You are confused or can't think clearly. Your face and lips have a blue color. You pass out (lose consciousness) or are very hard to wake up. Call your doctor now or seek immediate medical care if: You have moderate trouble breathing. (You can't speak a full sentence.) You are coughing up blood (more than about 1 teaspoon). You have signs of low blood pressure. These include feeling lightheaded; being too weak to stand; and having cold, pale, clammy skin. Watch closely for changes in your health, and be sure to contact your doctor if: Your symptoms get worse. You are not getting better as expected. Call before you go to the doctor's office. Follow their instructions. And wear a face mask if you have one. Current as of: July 31, 2019 Content Version: 12.4 [employer], [employer]. Care instructions adapted under license by your healthcare professional. If you have questions about a medical condition or this instruction, always ask your healthcare professional. [employer], [facility] disclaims any warranty or liability for your use of this information. Information for Household Members and Caregivers of Someone who is Sick Call ahead before visiting your doctor Call ahead: If you have a medical appointment, call the healthcare provider and tell them that you have or may have COVID-19. This will help the healthcare provider's office take steps to keep other people from getting infected or exposed. Wear a facemask if you are sick ; If you are sick: You should wear a facemask when you are around other people (e.g., sharing a room or vehicle) or pets and before you enter a healthcare provider's office. ; If you are caring for others: If the person who is sick is not able to wear a facemask (for example, because it causes trouble breathing), then people who live with the person who is sick should not stay in the same room with them, or they should wear a facemask if they enter a room with the person who is sick. Cover your coughs and sneezes ; Cover: Cover your mouth and nose with a tissue when you cough or sneeze. ; Dispose: Throw used tissues in a lined trash can. ; Wash hands: Immediately wash your hands with soap and water for at least 20 seconds or, if soap and water are not available, clean your hands with an alcohol-based hand head of ict that contains at least 60% alcohol. Clean your hands often ; Wash hands: Wash your hands often with soap and water for at least 20 seconds, especially after blowing your nose, coughing, or sneezing; going to the bathroom; and before eating or preparing food. ; Hand head of ict: If soap and water are not readily available, use an alcohol- based hand head of ict with at least 60% alcohol, covering all surfaces of your hands and rubbing them together until they feel dry. ; Soap and water: Soap and water are the best option if hands are visibly dirty. ; Avoid touching: Avoid touching your eyes, nose, and mouth with unwashed hands. Handwashing Tips ; Wet your hands with clean, running water (warm or cold), turn off the tap, and apply soap. ; Lather your hands by rubbing them together with the soap. Lather the backs of your hands, betweenyour fingers, and under your nails. ; Scrub your hands for at least 20 seconds. Need a timer? Hum the Happy Birthday song from beginning to end twice. ; Rinse your hands well under clean, running water. ; Dry your hands using a clean towel or air dry them. Avoid sharing personal household items ; Do not share: You should not share dishes, drinking glasses, cups, eating utensils, towels, or bedding with other people or pets in your home. ; Wash thoroughly after use: After using these items, they should be washed thoroughly with soap and water. Clean all high-touch surfaces everyday ; Clean and disinfect: Practice routine cleaning of high touch surfaces. ; High touch surfaces include counters, tabletops, doorknobs, bathroom fixtures, toilets, phones, keyboards, tablets, and bedside tables. ; Disinfect areas with bodily fluids: Also, clean any surfaces that may have blood, stool, or body fluids on them. ; Household bolt cutter: Use a household cleaning spray or wipe, according to the label instructions. Labels contain instructions for safe and effective use of the cleaning product including precautionsyou should take when applying the product, such as wearing gloves and making sure you have good ventilation during use of the product. Monitor your symptoms Seek medical attention: Seek prompt medical attention if your illness is worsening (e.g., difficulty breathing). ; Call your doctor: Before seeking care, call your healthcare provider and tell them that you have,or are being evaluated for, COVID-19. ; Wear a facemask when sick: Put on a facemask before you enter the facility. These steps will helpthe healthcare provider's office to keep other people in the office or waiting room from getting infected or exposed. ; Alert health department: Ask your healthcare provider to call the local or state health department. Persons who are placed under active monitoring or facilitated self-monitoring should follow instructions provided by their local health department or occupational health professionals, as appropriate. ; Call 911 if you have a medical emergency: If you have a medical emergency and need to call 911, notify the dispatch personnel that you have, or are being evaluated for COVID-19. If possible, put bahman facemask before emergency medical services arrive. General Recommendations for Routine Cleaning and Disinfection of Households Community members can practice routine cleaning of frequently touched surfaces (for example: tables, doorknobs, light switches, handles, desks, toilets, faucets, sinks) with household bolt cutter and EPA-registered disinfectants that are appropriate for the surface, following label instructions. Labels contain instructions for safe and effective use of the cleaning product including precautions you should take when applying the product, such as wearing gloves and making sure you have good ventilation during use of the product. These guidelines are focused on household settings and are meant for the general public. ? Cleaning refers to the removal of germs, dirt, and impurities from surfaces. Cleaning does not kill germs, but by removing them, it lowers their numbers and the risk of spreading infection. ? Disinfecting refers to using chemicals to kill germs on surfaces. This process does not necessarily clean dirty surfaces or remove germs, but by killing germs on a surface after cleaning, it can further lower the risk of spreading infection. General Recommendations for Cleaning and Disinfection of Households with People Isolated in Home Care - Confirmed or suspected COVID 19 ? Household members should educate themselves about COVID-19 symptoms and preventing the spread of COVID-19 in homes. ? Clean and disinfect high-touch surfaces daily in household common areas (e.g. tables, hard-backedchairs, doorknobs, light switches, remotes, handles, desks, toilets, sinks) o In the bedroom/bathroom dedicated for an ill person: consider reducing cleaning frequency to as-needed (e.g., soiled items and surfaces) to avoid unnecessary contact with the ill person. ? As much as possible, an ill person should stay in a specific room and away from other people in their home. ? The caregiver can provide personal cleaning supplies for an ill person's room and bathroom, unless the room is occupied by child or another person for whom such supplies would not be appropriate. These supplies include tissues, paper towels, bolt cutter and EPA-registered disinfectants (see list link at CDC website). ? If a separate bathroom is not available, the bathroom should be cleaned and disinfected after each use by an ill person. If this is not possible, the caregiver should wait as long as practical after use by an ill person to clean and disinfect the high-touch surfaces. How to clean and disinfect: Hard Surfaces ? Wear disposable gloves when cleaning and disinfecting surfaces. Gloves should be discarded after each cleaning. If reusable gloves are used, those gloves should be dedicated for cleaning and disinfection of surfaces for COVID-19 and should not be used for other purposes. Consult the grain combiner's instructions for cleaning and disinfection products used. Clean hands immediately after gloves areremoved. ? If surfaces are dirty, they should be cleaned using a detergent or soap and water prior to disinfection. ? For disinfection, diluted household bleach solutions, alcohol solutions with at least 70% alcohol, and most common EPA-registered household disinfectants should be effective. o Diluted household bleach solutions can be used if appropriate for the surface. Follow grain combiner's instructions for application and proper ventilation. Check to ensure the product is not past itsexpiration date. Never mix household bleach with ammonia or any other cleanser. Unexpired householdbleach will be effective against coronaviruses when properly diluted. ? Prepare a bleach solution by mixing: ? 5 tablespoons (1/3rd cup) bleach per gallon of water or ? 4 teaspoons bleach per quart of water o Products with EPA-approved emerging viral pathogens [facility] iconexternal icon are expected to be effective against COVID-19 based on data for harder to kill viruses. Follow the grain combiner's instructions for all cleaning and disinfection products (e.g., concentration, application method and contact time, etc.). Soft (porous) surfaces such as carpeted floor, rugs, and drapes Remove visible contamination if present and clean with appropriate bolt cutter indicated for use on these surfaces. After cleaning: Launder items as appropriate in accordance with the grain combiner's instructions. If possible, launder items using the warmest appropriate water setting for the items and dry items completely, or Clothing, towels, linens and other items that go in the laundry ? Wear disposable gloves when handling dirty laundry from an ill person and then discard after eachuse. If using reusable gloves, those gloves should be dedicated for cleaning and disinfection of surfaces for COVID-19 and should not be used for other household purposes. Clean hands immediately after gloves are removed. o If no gloves are used when handling dirty laundry, be sure to wash hands afterwards. o If possible, do not shake dirty laundry. This will minimize the possibility of dispersing virus through the air. o Launder items as appropriate in accordance with the grain combiner's instructions. If possible, launder items using the warmest appropriate water setting for the items and dry items completely. Dirtylaundry from an ill person can be washed with other people's items. o Clean and disinfect clothes hampers according to guidance above for surfaces. If possible, consider placing a bag worker that is either disposable (can be thrown away) or can be laundered. [facility] has a list of EPA approved cleaning products on their website - https://www.cdc.gov/coronavirus/ 2019-ncov/community/home/cleaning-disinfection.html https://www.Easy Pairings/Nvirg-Jtasvstiags-Rfwsqzie-Products-List.pdf [employer] Stores with delivery and pick pack worker services: [employer]: Free pick pack worker at locations Delivery is $12.95 a month Website - [employer] [place]: Fire Services Plumber $2.95 (1st order is free) Delivery is $14.95 Website [employer] [place]: cell operation supervisor is free Delivery is $5.95 [employer]: cell operation supervisor is $4.95 Delivery is $9.95 Website [employer]: cell operation supervisor is $4.95 Delivery is $9.95 op5 [employer]: Can be ordered for delivery and pick pack worker with [employer] Website - www.[employer]: Free deliver for first 3 orders of $35 or more Website [employer] Will deliver from [employer], [employer], [employer], and [employer]. Annual membership is $99 Monthly membership is $14 chambers documented in this encounter Hospital Course * Martinez Stapleton MD - 10/12/2019 12:35 PM EDT Obstetric Discharge Summary Shoaib Perez 10/10/2019 Reasons for Admission on 10/10/2019 9:31 AM Labor and delivery indication for care or intervention [O75.9] Section (Primary) anhydramnios Surgical Operations & Procedures: Delivery Type: without labor Laceration(s): n/a Delivery Complications: none Pertinent Findings & Procedures: Information for the patient's : Lee Perez [[id number]] male Weight: 4 lb 8 oz (2.04 kg) Apgars: Information for the patient's : Lee Perez [[id number]] One Minute : 1 Five Minute : 8 course normal. Blood Type/Rh: No results found for: ABORH Antibody Screen: Antibody Screen Date Value Ref Range Status 10/10/2019 POS NA Final Rubella: No results found for: RUBELLAIGG Discharge to: Home Contraception: unsure : yes Meds: Shoaib Perez Home Medication Instructions COLBY:[id number] Printed on:10/12/19 1232 Medication Information ferrous sulfate (IRON 325) 325 (65 Fe) MG tablet Take 1 tablet by mouth 2 times daily (with meals) ibuprofen (ADVIL;MOTRIN) 600 MG tablet Take 1 tablet by mouth every 6 hours oxyCODONE (ROXICODONE) 5 MG immediate release tablet Take 1 tablet by mouth every 6 hours as needed for Pain for up to 5 days. Vit-Fe Fumarate-FA ( 1+1 PO) Take by mouth Activity: activity as tolerated Diet: regular diet [facility]: [facility] In 4-6 weeks Condition on discharge: good and stable Discharge date: 10/12/2019 Labor and delivery indication for care or intervention [O75.9] Patient Active Problem List Diagnosis Suspected abnormality of fetus affecting management of mother in delgado abnormality affecting management of mother Oligohydramnios antepartum, third trimester, fetus 1 Labor and delivery indication for care or intervention Martinez Stapleton MD on 10/12/2019 at 12:36 PM Comments: Home care, Follow-up care and control were reviewed. Signs and symptoms of mastitis and Post Depression were reviewed. The patient is to notify her physician if any of these occur. documented in this encounter Medications Administered Section Inactive Administered Medications - up to 3 most recent administrations Medication Order MAR Action Action Date Dose Rate Site tropicamide 0.5 % 1 Drop (MYDRIACYL) 1 Drop, BOTH EYES, ONCE, 1 dose, On 1/11/23 at 1730, FOR THE EYE Given 05/11/2022 5:30 PM EST 1 Drop Additional Source Comments INFORMATION SOURCE (unrecogn ized section and content) DATE CREATED AUTHOR AUTHOR'S ORGANIZ ATION 04/09/2018 [facility] DATE CREATED AUTHOR AUTHOR'S ORGANIZ ATION 04/09/2018 [facility] DATE CREATED AUTHOR AUTHOR'S ORGANIZ ATION 07/13/2018 [facility] DATE CREATED AUTHOR AUTHOR'S ORGANIZ ATION 10/24/2019 [facility] DATE CREATED AUTHOR AUTHOR'S ORGANIZ ATION 11/20/2019 [facility] DATE CREATED AUTHOR AUTHOR'S ORGANIZ ATION 04/18/2020 [facility] DATE CREATED AUTHOR AUTHOR'S ORGANIZ ATION 05/24/2020 [facility] DATE CREATED AUTHOR AUTHOR'S ORGANIZ ATION 05/12/2022 [facility] DATE CREATED AUTHOR AUTHOR'S ORGANIZ ATION 10/20/2022 [facility] DATE CREATED AUTHOR AUTHOR'S ORGANIZ ATION 05/15/2023 [facility] Reason for Visit (unrecogniz ed section and content) Reason Comments Sore Throat x 3 days. Headache x 3 days. Otalgia x 3 days. Reason Comments Annual Exam Reason Comments Urine odor states has foul odor x 3 days. Reason Comments ED Follow-up Reason Comments New Patient Body fluid exposure Pt here for follow u p of needle stick injury. 12/05/18 pt is on HIV exposure kit. Reason Comments Urine odor x 1 week, Reason Comments Non-stress Test Reason Comments Other NST Reason Comments Scheduled Reason Comments Urinary Tract Infection Reason Comments Body Fluid Exposure Reason Comments Other monitoring Reason Comments Corneal evaluation History of corneal n eovascularization Contact lens evaluation Assessment & Plan Note - Marlene Gasca CNP - 02/28/2020 2:01 PM EDT Miscellaneous Notes (unrecog nized section and content) Associated Problem(s): Dysuria Your urine dip that was completed in the office today shows leukocytes, we have sent the remainder of your urine to culture and I have sent Keflex into your pharmacy. This medication is safe to take with breast-feeding. We will contact you with results of your urine culture when they return to the office. At your appointment today you prescribed an antibiotic. Please take this medication as directed, and complete the entire treatment. Please note that some antibiotics can cause an upset stomach and/or diarrhea. If you develop an upset stomach while taking the antibiotic, please eat something small when taking this medication. To prevent diarrhea you to take a probiotic which can be found xoxf-utg-rsyextc or eat yogurt twice a day. documented in this encounter Karri Maza, - 12/05/2018 5:17 AM Aleah Shanks RN - 12/05/2018 4:35 AM Aleah Shanks RN - 12/05/2018 4:34 AM Edith Sexton LPN - 12/05/2018 4:29 AM EDT ED Notes (unrecognized secti on and content) ED PROVIDER NOTE [facility] NAME: Shoaib Perez AGE: 18 y.o. : 2000 VISIT DATE: 12/05/2018 CSN: [id number] PCP: Marlene Gasca CNP Chief Complaint Patient presents with Body Fluid Exposure Fingerstick injury from needle of unknown source on floor lab History provided by: Patient slot manager used: No Body Fluid Exposure Exposure mechanism: Needle fingerstick right thumb. Exposure substance comment: Unknown Exposure location: Right thumb. Time since exposure: 20 minutes Exposure context: At work. Tetanus immunization status: Unknown Past Medical History: Diagnosis Date Spontaneous 2019 History reviewed. No pertinent surgical history. History reviewed. No pertinent family history. Social History Socioeconomic History Marital status: Single Spouse name: Not on file Number of children: Not on file Years of education: Not on file Highest education level: Not on file Occupational History Not on file Social Needs Financial resource strain: Not on file Food insecurity: Worry: Not on file Inability: Not on file Transportation needs: Medical: Not on file Non-medical: Not on file Tobacco Use Smoking status: Never Smoker Smokeless tobacco: Never Used Substance and Sexual Activity Alcohol use: No Drug use: No Sexual activity: Yes Partners: Male control/protection: Pill, Condom Lifestyle Physical activity: Days per week: Not on file Minutes per session: Not on file Stress: Not on file Relationships Social connections: Talks on phone: Not on file Gets together: Not on file Attends restorationist service: Not on file Active member of club or organization: Not on file Attends meetings of clubs or organizations: Not on file Relationship status: Not on file Other Topics Concern Not on file Social History Narrative Not on file Previous Medications Medication Sig nitrofurantoin, macrocrystal-monohydrate, (MACROBID) 100 MG capsule Take 1 (one) capsule (100 mg total) by mouth 2 (two) times a day . Allergies Allergen Reactions Augmentin [Amoxicillin-Pot Clavulanate] GI Intolerance Codeine GI Intolerance emesis Sulfa (Sulfonamide Antibiotics) GI Intolerance and Other (See Comments) Review of Systems Musculoskeletal: Needle stick right thumb All other systems reviewed and are negative. Patient Vitals for the past 24 hrs: BP Temp Temp src Pulse Resp SpO2 Height Weight 12/05/18 0438 5' 1 54.4 kg (120 lb) 12/05/18 0432 112/83 97.9 F (36.6 C) Oral (!) 58 16 100 % Physical Exam Constitutional: He is oriented to person, place, and time. He appears well- developed and well-nourished. HENT: Head: Normocephalic and atraumatic. Eyes: Pupils are equal, round, and reactive to light. Neck: Normal range of motion. Cardiovascular: Normal rate. Pulmonary/Chest: Effort normal. Abdominal: No complaints of abdominal pain Genitourinary: Genitourinary Comments: No complaints of CVA tenderness Musculoskeletal: No obvious injury deformity except for a needlestick jose on the pad of the right thumb Neurological: He is oriented to person, place, and time. Skin: Skin is warm and dry. Psychiatric: He has a normal mood and affect. His behavior is normal. Nursing note and vitals reviewed. Laboratory & Radiographic Imaging (if done): No results found for this visit on 12/05/18. No orders to display Procedures MDM The patient has been informed that they may have pre-hypertension or hypertension based on a blood pressure reading in the Emergency Department. I recommend that the patient call the primary care provider listed on their discharge instructions or a physician of their choice as soon as possible to arrange follow-up in the next 4 weeks for further evaluation of possible pre-hypertension or hypertension. . Clinical Impression: No diagnosis found. ED Disposition None Follow-up Information Follow-up information has not been specified. Contact information for after-discharge care Follow-up information has not been specified. Karri Maza DO 12/05/[address] LAURIE OBANDO. PT. 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 ONE OF THE NURSES SAID IT WAS A NEEDLE THAT LAB USES. PT. UNSURE WHO THE SOURCE PT. WAS FROM THE DIRTY NEEDLE. Bed: 14 Expected date: Expected time: Means of arrival: Comments: NEXT PATIENT documented in this encounter Source Comments (unrecognize d section and content) In the event this informatio n is protected by the Federal Confidentiality of Alcohol and Drug Abuse Patient Records regulations: The Federal rules restrict any use of the information to criminally investigate or prosecute any alcohol or drug abuse patient.[facility] Care Teams (unrecognized sec tion and content) FOR RECORDS PERTAINING TO PATIENTS WHO ARE OR HAVE BEEN ENROLLED IN A CHEMICAL DEPENDENCY/SUBSTANCEABUSE PROGRAM, SOME INFORMATION MAY BE OMITTED. This clinical summary was aggregated from multiple sources. Caution should be exercised in using it in the provision of clinical care. This summary normalizes information from multiple sources, and as a consequence, information in this document may materially change the coding, format and clinical context of patient data. In addition, data may be omitted in some cases. CLINICAL DECISIONS SHOULD BE BASED ON THE PRIMARY CLINICAL RECORDS. [facility] provides no warranty or guarantee of the accuracy or completeness of information in this document.
[2023-05-19 14:31] LABS: Absolute Lymphocyte Count 1.42 X10^3/uL (0.83-4.51); Absolute Neutrophil Count 5.6 X10^3/uL (2.0-7.7); Basophil# 0.01 X10^3/uL; Basophil% 0.1 % (0-1); Eosinophil# 0.02 X10^3/uL; Eosinophils% 0.3 % (0-5); Hemoglobin 13.1 g/dL (12.0-15.0); Lymphocyte # 1.42 X10^3/ul (0.83-4.51); Lymphocyte % 19.1 % (19-41); Mean Corp Hgb Conc 33.6 g/dL (32-36); Mean Corpuscular Hgb 30.7 pg (27.0-32.0); Mean Corpuscular Volume 91.3 fL (81-99); Mean Platelet Vol. 13.4 fl (6.2-12.0); Monocyte% 5.4 % (0-10); NRBC Flagged by Analyzer 0 % (0-5); Neutrophil # 5.56 X10^3/uL (2.7-7.7); Neutrophil % 74.7 % (47-70); Platelet Count 109 K/mm3 (150-450); RBC Distribution Width CV 13.6 % (11.6-14.6); RBC Distribution Width SD 45.6 fl (35.1-43.9); Red Blood Count 4.27 M/mm3 (4.2-5.4); White Blood Count 7.4 K/mm3 (4.4-11.0)
[2023-05-19 15:41] LABS: HIV - WCH Non-Reactive (Nonreactive); Hepatitis B Surface Antigen Non-Reactive (Nonreactive); Hepatitis C Antibody Non-Reactive (Nonreactive); Rubella IgG Reactive (Nonreactive); Syphilis Antibodies Non-reactive
== END | disposition home or self-care (01) ==
PROVIDERS: Obstetrics & Gynecology; Referring Provider Obstetrics & Gynecology; Visit Provider Obstetrics & Gynecology
DX: Z34.90 Encounter for supervision of normal pregnancy, unspecified, unspecified trimester (principal)
CPT/HCPCS: 36415; 85025; 86703; 86762; 86780; 86803; 86850; 86900; 86901; 87340

== ENCOUNTER → 2023-08-10 | Outpatient (CLI) | payer BC, SELFPAY ==
[2023-08-10 09:03] LABS: Absolute Neutrophil Count 6.1 X10^3/uL (2.0-7.7); Basophil# 0.02 X10^3/uL; Basophil% 0.2 % (0-1); Eosinophil# 0.05 X10^3/uL; Eosinophils% 0.6 % (0-5); Hematocrit 34.3 % (37-47); Hemoglobin 11.5 g/dL (12.0-15.0); Lymphocyte % 22.2 % (19-41); Mean Corp Hgb Conc 33.5 g/dL (32-36); Mean Corpuscular Volume 95.5 fL (81-99); Mean Platelet Vol. 13.2 fl (6.2-12.0); Monocyte% 4.7 % (0-10); NRBC Flagged by Analyzer 0 % (0-5); Neutrophil # 6.11 X10^3/uL (2.7-7.7); Neutrophil % 71.2 % (47-70); POSITIVE COUNT YES; Platelet Count 88 K/mm3 (150-450); RBC Distribution Width SD 48.9 fl (35.1-43.9); Red Blood Count 3.59 M/mm3 (4.2-5.4); White Blood Count 8.6 K/mm3 (4.4-11.0)
[2023-08-10 09:29] LABS: Glucose Challenge Gest 1H 50g 99 mg/dL (70-140)
[2023-08-10 10:51] LABS: HIV - WCH Non-Reactive (Nonreactive); Syphilis Antibodies Non-reactive
== END | disposition home or self-care (01) ==
PROVIDERS: Referring Provider Nurse Practitioner Women's Health; Visit Provider Nurse Practitioner Women's Health
DX: Z34.90 Encounter for supervision of normal pregnancy, unspecified, unspecified trimester (principal)
CPT/HCPCS: 36415; 82950; 85025; 86703; 86780; 86850; 86900; 86901

== ENCOUNTER → 2023-08-22 | Outpatient (CLI) | payer BC, SELFPAY ==
[2023-08-22 14:00] LABS: Absolute Lymphocyte Count 2.01 X10^3/uL (0.83-4.51); Basophil# 0.02 X10^3/uL; Basophil% 0.2 % (0-1); Eosinophil# 0.05 X10^3/uL; Eosinophils% 0.5 % (0-5); Hematocrit 36.2 % (37-47); Hemoglobin 12.1 g/dL (12.0-15.0); Lymphocyte # 2.01 X10^3/ul (0.83-4.51); Lymphocyte % 21.2 % (19-41); Mean Corp Hgb Conc 33.4 g/dL (32-36); Mean Corpuscular Volume 95.8 fL (81-99); Mean Platelet Vol. 13.1 fl (6.2-12.0); Monocyte# 0.39 X10^3/uL; Monocyte% 4.1 % (0-10); NRBC Flagged by Analyzer 0 % (0-5); Neutrophil # 6.96 X10^3/uL (2.7-7.7); Neutrophil % 73.3 % (47-70); POSITIVE COUNT YES; Platelet Count 86 K/mm3 (150-450); RBC Distribution Width CV 14.1 % (11.6-14.6); RBC Distribution Width SD 48.9 fl (35.1-43.9); Red Blood Count 3.78 M/mm3 (4.2-5.4); White Blood Count 9.5 K/mm3 (4.4-11.0)
== END | disposition home or self-care (01) ==
LOC: PAVLAB 13:49
PROVIDERS: Referring Provider Nurse Practitioner Women's Health; Visit Provider Nurse Practitioner Women's Health
DX: O99.119 Other diseases of the blood and blood-forming organs and certain disorders involving the immune mechanism complicating pregnancy, unspecified trimester (principal); D69.6 Thrombocytopenia, unspecified; Z3A.00 Weeks of gestation of pregnancy not specified
CPT/HCPCS: 36415; 85025

== ENCOUNTER → 2023-09-22 | Outpatient (CLI) | payer BC, SELFPAY ==
[2023-09-22 16:56] LABS: Absolute Lymphocyte Count 2.09 X10^3/uL (0.83-4.51); Absolute Neutrophil Count 7.4 X10^3/uL (2.0-7.7); Basophil# 0.02 X10^3/uL; Basophil% 0.2 % (0-1); Eosinophil# 0.05 X10^3/uL; Eosinophils% 0.5 % (0-5); Hematocrit 34.9 % (37-47); Hemoglobin 11.6 g/dL (12.0-15.0); Lymphocyte # 2.09 X10^3/ul (0.83-4.51); Lymphocyte % 20.8 % (19-41); Mean Corp Hgb Conc 33.2 g/dL (32-36); Mean Corpuscular Volume 96.4 fL (81-99); Mean Platelet Vol. 13.6 fl (6.2-12.0); Monocyte# 0.41 X10^3/uL; Monocyte% 4.1 % (0-10); NRBC Flagged by Analyzer 0 % (0-5); Neutrophil % 73.6 % (47-70); POSITIVE COUNT YES; Platelet Count 78 K/mm3 (150-450); RBC Distribution Width CV 13.9 % (11.6-14.6); RBC Distribution Width SD 48.7 fl (35.1-43.9); Red Blood Count 3.62 M/mm3 (4.2-5.4); White Blood Count 10.1 K/mm3 (4.4-11.0)
== END | disposition home or self-care (01) ==
LOC: LAB 15:37
PROVIDERS: Referring Provider Obstetrics & Gynecology; Visit Provider Obstetrics & Gynecology
DX: O09.93 Supervision of high risk pregnancy, unspecified, third trimester (principal); D69.3 Immune thrombocytopenic purpura; O99.113 Other diseases of the blood and blood-forming organs and certain disorders involving the immune mechanism complicating pregnancy, third trimester; Z3A.00 Weeks of gestation of pregnancy not specified
CPT/HCPCS: 36415; 85025

== ENCOUNTER → 2023-11-27 | Outpatient (CLI) | payer BC, SELFPAY ==
[2023-11-27 11:26] LABS: Absolute Lymphocyte Count 2.25 X10^3/uL (0.83-4.51); Absolute Neutrophil Count 2.8 X10^3/uL (2.0-7.7); Basophil# 0.03 X10^3/uL; Basophil% 0.5 % (0-1); Eosinophil# 0.14 X10^3/uL; Eosinophils% 2.5 % (0-5); Hematocrit 39.4 % (37-47); Hemoglobin 13.1 g/dL (12.0-15.0); Lymphocyte # 2.25 X10^3/ul (0.83-4.51); Lymphocyte % 40.4 % (19-41); Mean Corp Hgb Conc 33.2 g/dL (32-36); Mean Corpuscular Volume 93.1 fL (81-99); Mean Platelet Vol. 12.6 fl (6.2-12.0); Monocyte% 5.4 % (0-10); NRBC Flagged by Analyzer 0 % (0-5); Neutrophil # 2.84 X10^3/uL (2.7-7.7); Platelet Count 123 K/mm3 (150-450); RBC Distribution Width CV 11.9 % (11.6-14.6); RBC Distribution Width SD 40.4 fl (35.1-43.9); Red Blood Count 4.23 M/mm3 (4.2-5.4); White Blood Count 5.6 K/mm3 (4.4-11.0)
== END | disposition home or self-care (01) ==
LOC: PAVLAB 11:03
PROVIDERS: Referring Provider Nurse Practitioner Women's Health; Visit Provider Nurse Practitioner Women's Health
DX: D64.9 Anemia, unspecified (principal)
CPT/HCPCS: 36415; 85025

== ENCOUNTER → 2025-01-31 | Outpatient (CLI) | payer BC, SELFPAY ==
[2025-01-31 13:19] LABS: hCG Titer Quant., Serum 6 mIU/mL (<9 non-preg)
== END | disposition home or self-care (01) ==
PROVIDERS: Visit Provider Obstetrics & Gynecology
DX: O20.0 Threatened abortion (principal); Z3A.00 Weeks of gestation of pregnancy not specified
CPT/HCPCS: 36415; 84702

== ENCOUNTER → 2025-04-28 | Outpatient (CLI) | payer BC, SELFPAY ==
[2025-05-01 05:07] LABS: Chlamydia By Nucleic Acid AMP Negative (Negative); Gonococcus By Nucleic Acid AMP Negative (Negative)
== END | disposition home or self-care (01) ==
LOC: LABSPEC 16:08
PROVIDERS: Visit Provider Student in an Organized Health Care Education/Training Program
DX: O09.90 Supervision of high risk pregnancy, unspecified, unspecified trimester (principal); Z3A.00 Weeks of gestation of pregnancy not specified
CPT/HCPCS: 87077; 87086; 87088; 87186; 87491; 87591